=== PATIENT | female | born 1985 | race Hispanic/Latino ===

== ENCOUNTER 2024-03-14 17:05 | Inpatient (IN) | payer SELFPAY ==
[~2024-03-14] VITALS: Ht 152.4 cm; Wt 68.5 kg
--- NOTE | 2024-03-14 17:54 | EKG ---
[facility] Test Date: 2024-03-14 Test Time: 17:51:55 Pat Name: PEREZ FLORES Department: [facility] Room: 305 Gender: F Credit Compliance Officer: [id number] : 1985 Requested By: TRISHA ROSS Order Number: [id number] Reading MD: Princess Little Measurements Intervals [place] Rate: 111 P: 36 GA: 150 QRS: -11 QRSD: 92 T: 31 QT: 318 QTc: 431 Interpretive Statements Sinus tachycardia No previous ECG available for comparison Electronically Signed On 03-15-2024 17:25:28 WATCH TRAIN ASSEMBLER by Princess Little Please click the below link to view image of tracing.
--- NOTE | 2024-03-14 18:14 | HMCIMG ---
CHEST 1VW HISTORY: Shortness of breath COMPARISON: None FINDINGS: A frontal projection of the chest was obtained. No acute pulmonary infiltrates is seen. The heart is normal in size. Prominent interstitial markings are seen. Aortic calcifications are seen. Mild degenerative changes are seen. IMPRESSION: 1. No acute pulmonary infiltrate is seen.
[2024-03-14 18:43] LABS: COVID19 (SARS ANTIGEN RAPID) PRESUMPTIVE NEGATIVE (NEGATIVE); INFLUENZA TYPE A Negative For Type A (NEGATIVE); INFLUENZA TYPE B Negative For Type B (NEGATIVE)
[2024-03-14 18:52] LABS: BASOPHILS # (AUTO) 0.01 K/uL (0.00-0.20); BASOPHILS % (AUTO) 0.3 % (0.0-5.0); HEMATOCRIT 42.2 % (36-48); IMMATURE GRANULOCYTE ABSOLUTE 0.02 K/uL (0-1); LYMPHOCYTES # (AUTO) 0.7 K/uL (1.0-4.8); LYMPHOCYTES % (AUTO) 21.2 % (21.0-51.0); MEAN CORPUSCULAR HEMOGLOBIN 29.3 pg (27.0-33.0); MEAN CORPUSCULAR HGB CONC 33.4 g/dL (32.0-36.0); MEAN CORPUSCULAR VOLUME 87.7 fL (79-99); MONOCYTES # (AUTO) 0.2 K/uL (0.1-1.0); MONOCYTES % (AUTO) 6.1 % (3.0-13.0); NEUTROPHILS # (AUTO) 2.5 K/uL (1.8-7.7); NEUTROPHILS % (AUTO) 71.8 % (40.0-77.0); PLATELET COUNT (AUTO) 243 K/uL (130-400); RED BLOOD CELL COUNT(AUTO) 4.81 MIL/uL (4.00-5.50); RED CELL DISTRIBUTION WIDTH 12.3 % (11.0-15.5); WHITE BLOOD COUNT (AUTO) 3.5 K/uL (4.8-10.8)
[2024-03-14] MEDS: acetaMINOPHEN 500 MG TABLET PO ONE (19:03)
--- NOTE | 2024-03-14 19:06 | ERN ---
ED Note History of Present Illness Stated Complaint: FEVER 5 DAYS, LBP, HEADACHE Chief Complaint: Fever Time Seen by MD: 17:08 Time Seen by Midlevel: 17:08 Dictation: The patient is a 38-year-old female with a history of anemia who presents to the emergency department with multiple complaints of fever, nausea, chills, headache, left flank pain,onset Wednesday. Patient denies any abdominal pain, vomiting, sore throat, cough, ear pain. Allergies: Coded Allergies: No Known Drug Allergies (Verified Allergy, Unknown, 08/23/13) Home Meds No Active Prescriptions or Reported Meds Past Medical History Past Medical History: Anemia Surgical History: None RN Note Reviewed/Agreed w/PFSH: Yes Review of System Dictation Constitutional: Negative for weight loss positive for fever, chills Eyes: Negative for injury, pain,redness, and discharge ENT: Negative for injury,pain or swelling Cardiovascular: Negative for palpitations, and edema positive for chest pain Respiratory: Negative for cough, and wheezing, positive for shortness of breath Abdomen/GI: Negative for abdominal pain, , vomiting, diarrhea, and constipation positive for nausea Back: Negative for injury and pain : Negative for injury, bleeding and discharge MS/Extremity: Negative for injury and deformity Skin: Negative for rash, and discoloration Neuro: Negative for headache, weakness, numbness, tingling, and seizure Psych: Negative for suicide ideation, homicidal ideation, and hallucinations Initial Vital Sign VS Vital Signs Date Time Temp Pulse Resp B/P (MAP) Pulse Ox O2 Delivery O2 Flow Rate FiO2 03/14/24 17:38 102.6 110 16 137/99 99 Room Air* 0 21 Physical Exam Dictation Vital Signs reviewed General Appearance: Alert, oriented x 3, no acute distress, well developed, nourished. Head and Face: non-traumatic. Eyes: PERRL, pink conjunctivas, eyelid no trauma, anterior chamber with arcus senilis. Ears: Pinnas intact and no signs of trauma or erythema ear canals clear and no discharge TM no erythema Nose: No discharge, no bleeding. Oropharynx: Mouth normal, tongue pink. pharynx clear,no erythema, tonsils no exudates, no abscesses noted, mucous membrane moist Neck: Supple, non-tender, no thyromegaly, no masses, no JVD, no bruits Breast:Deferred Chest:No tenderness, no crepitus, no paradoxical movement, no retractions Lungs:Clear, well-ventilated, symmetric, no rales, no wheezing, no rhonchi, no stridor, good breath sounds bilaterally Heart: Regular rate, regular rhythm, no murmur, no gallops Vascular: no peripheral edema, Abdomen: Soft, positive bowel sounds, nondistended, no guarding, nontender, no rebound, no masses no hepatomegaly, no splenomegaly, no Victor's sign, no hernias. Rectal: Deferred Genital: Deferred Neurological: Normal speech, motor function intact, sensory function intact Musculoskeletal: Neck nontender, full range of motion, back nontender, full range of motion, Extremities: nontender, full range of motion Skin: Color pink, dry, no turgor, no rash, no lacerations, no abrasions, no contusions. Lymphatic: Deferred Results (Laboratory/Radiology) Laboratory/Radiology Laboratory Tests Test 03/14/24 17:55 03/14/24 18:17 03/14/24 19:38 Influenza Type A Antigen Negative For Type A Influenza Type B Antigen Negative For Type B SARS-CoV-2 Antigen (Rapid) PRESUMPTIVE NEGATIVE White Blood Count 3.5 K/uL (4.8-10.8) L Red Blood Count 4.81 MIL/uL (4.00-5.50) Hemoglobin 14.1 g/dL (12.0-16.0) Hematocrit 42.2 % (36-48) Mean Corpuscular Volume 87.7 fL (79-99) Mean Corpuscular Hemoglobin 29.3 pg (27.0-33.0) Mean Corpuscular Hemoglobin Concent 33.4 g/dL (32.0-36.0) Red Cell Distribution Width 12.3 % (11.0-15.5) Platelet Count 243 K/uL (130-400) Mean Platelet Volume 9.9 fL (7.5-10.5) Immature Granulocyte % (Auto) 0.6 % (0-1) Neutrophils (%) (Auto) 71.8 % (40.0-77.0) Lymphocytes (%) (Auto) 21.2 % (21.0-51.0) Monocytes (%) (Auto) 6.1 % (3.0-13.0) Eosinophils (%) (Auto) 0.0 % (0.0-8.0) Basophils (%) (Auto) 0.3 % (0.0-5.0) Neutrophils # (Auto) 2.5 K/uL (1.8-7.7) Lymphocytes # (Auto) 0.7 K/uL (1.0-4.8) L Monocytes # (Auto) 0.2 K/uL (0.1-1.0) Eosinophils # (Auto) 0.00 K/uL (0.00-0.70) Basophils # (Auto) 0.01 K/uL (0.00-0.20) Absolute Immature Granulocyte (auto 0.02 K/uL (0-1) Nucleated Red Blood Cells 0.0 % (0.0-0.19) Sodium Level 128 mmol/L (136-145) L Potassium Level 3.0 mmol/L (3.5-5.1) *L Chloride Level 93 mmol/L (101-111) L Carbon Dioxide Level 30 mmol/L (21-32) Blood Urea Nitrogen 4 mg/dL (7-18) L Creatinine 0.8 mg/dL (0.5-1.0) Glomerular Filtration Rate Calc 97 mL/min (>90) Random Glucose 102 mg/dL (70-105) Lactic Acid Level 1.4 mmol/L (0.8-2.5) Total Calcium 9.1 mg/dL (8.5-10.1) Troponin I High Sensitivity < 4 ng/L (4-50) L Urine Color YELLOW (YELLOW) Urine Appearance CLOUDY (CLEAR) H Urine pH 7.0 (5.0-8.0) Urine Specific [place] 1.027 (1.001-1.031) Urine Protein 30 mg/dL (NEGATIVE) H Urine Glucose (UA) NEGATIVE mg/dL (NEGATIVE) Urine Ketones 10 mg/dL (NEGATIVE) H Urine Occult Blood NEGATIVE (NEGATIVE) Urine Nitrate NEGATIVE (NEGATIVE) Urine Bilirubin NEGATIVE mg/dL (NEGATIVE) Urine Urobilinogen >=8.0 mg/dL (0.2-1.0) H Urine Leukocyte Esterase 75 [place]/uL (NEGATIVE) H Urine RBC 6-10 /HPF (0-1) H Urine WBC 6-10 /HPF (0-1) H Urine Squamous Epithelial Cells MANY /HPF (0-2) Urine Bacteria MOD /HPF (None Seen) REASON: sob ORDERING PHYSICIAN: TRISHA ROSS RIPSHEAR OPERATOR PROCEDURE: CXR1VW - CHEST 1VW CHEST 1VW HISTORY: Shortness of breath COMPARISON: None FINDINGS: A frontal projection of the chest was obtained. No acute pulmonary infiltrates is seen. The heart is normal in size. Prominent interstitial markings are seen. Aortic calcifications are seen. Mild degenerative changes are seen. IMPRESSION: 1. No acute pulmonary infiltrate is seen. REASON: left swelling ORDERING PHYSICIAN: TIRSHA ROSS RIPSHEAR OPERATOR PROCEDURE: SOFT NECK - US SOFT TISSUE NECK US SOFT TISSUE NECK REASON: left swelling. COMPARISON: None TECHNIQUE: Left neck ultrasound study was performed. FINDINGS: Over the palpable area, there are multiple left cervical lymph nodes with the largest measuring 4.2 x 1.6 cm. IMPRESSION: 1. Left cervical adenopathy with the largest lymph node measuring 4.2 x 1.6 cm. Follow-up examination is recommended. Labs Reviewed?: Yes EKG: (+) rhythm (Sinus tachycardia), (+) MS (150) EKG Comment: EKG 03/14/2024 1751 ventricular rate of 111, regular rate and rhythm, sinus tachycardia, no STEMI ED Course ED Course Orders Procedure Category Date Status Time Cbc With Differential LAB 03/14/24 Complete 17:38 Troponin I High LAB 03/14/24 Complete Sensitivity 17:38 Urinalysis Profile LAB 03/14/24 Complete 17:38 0.9%Nacl 1000ml (Ns PHA 03/14/24 Complete 1000ml) 18:00 Ondansetron 4mg Inj PHA 03/14/24 Complete (Zofran 4mg Inj) 18:00 Chest 1vw RAD 03/14/24 Resulted 17:38 Basic Metabolic Panel LAB 03/14/24 Complete 17:38 Acetaminophen 500mg PHA 03/14/24 Complete Tab (Tylenol 500mg T 18:00 Covid19 (Sars Antigen LAB 03/14/24 Complete Rapid) 17:38 Influenza Type A & B, LAB 03/14/24 Complete Rapid 17:38 12 Lead Ekg Tracing- EKG 03/14/24 Complete Technical 17:38 Blood Cult TULIO 03/14/24 In Process 17:40 Lactic Acid LAB 03/14/24 Complete 17:40 Ceftriaxone 2gm Vial PHA 03/14/24 Complete (Rocephin 2gm Inj) 18:00 Us Soft Tissue Neck US 03/14/24 Resulted 19:56 Culture Urine TULIO 03/14/24 In Process 19:56 Potassium Bicarb/Cit PHA 03/14/24 Complete Ac 25meq (K-Lyte Ta 20:30 Admit Orders ADM 03/14/24 Transmitted 21:06 Admit Orders ADM 03/14/24 Transmitted 21:33 Edm Admit Bridge Order ADM 03/14/24 Transmitted 21:33 Ceftriaxone 2gm Vial PHA 03/15/24 Complete (Rocephin 2gm Inj) 20:00 0.9%Nacl 1000ml (Ns PHA 03/14/24 In Process 1000ml) 22:30 Vital Signs Every 4 CPOE 03/14/24 Transmitted Hours 23:27 I&O Q Shift CPOE 03/14/24 Transmitted 23:27 Activity: Ad Enedelia CPOE 03/14/24 Transmitted 23:27 Consistent Carb DIET 03/15/24 Transmitted Breakfast O2 Order RT 03/14/24 Transmitted 23:27 Cbc With Differential LAB 03/15/24 In Process 04:00 Basic Metabolic Panel LAB 03/15/24 In Process 04:00 Magnesium LAB 03/15/24 In Process 04:00 Phosphorus LAB 03/15/24 In Process 04:00 Thyroid Stimulating LAB 03/15/24 In Process Hormone 04:00 Initiate VINCENZO 03/14/24 In Process Hyperglycemia Protoco 23:27 Enoxaparin Sodium 30 PHA 03/15/24 In Process Mg/0.3 Ml (Lovenox) 09:00 Acetaminophen 325 Tab PHA 03/15/24 In Process (Tylenol 325mg Tab 03:00 Acetaminophen 650mg PHA 03/15/24 In Process Supp (Tylenol 650mg 03:00 Lactulose 20 Gm/30 Ml PHA 03/15/24 In Process Udcup (Constulose 03:00 Docusate Sodium 100 PHA 03/15/24 In Process Mg Cap (Colace 100mg 03:00 Temazepam 15 Mg Cap PHA 03/15/24 In Process (Restoril 15 Mg Cap) 03:00 Ondansetron 4mg Inj PHA 03/15/24 In Process (Zofran 4mg Inj) 03:00 Hydralazine 20mg Inj PHA 03/15/24 In Process (Apresoline 20mg In 03:00 Ceftriaxone 2gm Vial PHA 03/15/24 In Process (Rocephin 2gm Inj) 06:00 Initiate Hypoglycemia VINCENZO 03/15/24 In Process Protocol 02:57 Dextrose 50%-Water PHA 03/15/24 In Process (D50w) 03:00 Glucagon 1mg Kit PHA 03/15/24 In Process (Glucagon 1mg Kit) 03:00 Magnesium 2gm Premix PHA 03/15/24 In Process 50ml (Magnesium 2gm 03:00 Initiate Po VINCENZO 03/15/24 In Process Hypokalemia Protoc 02:57 Potassium Chloride PHA 03/15/24 In Process 20meq/100ml ([place] 03:00 Potassium Chl 10% PHA 03/15/24 In Process Elixir 20meq (Kcl 10% 03:00 Potassium Chloride PHA 03/15/24 In Process 20meq Er (K-Dur/Klor- 03:00 Notify Physician If CPOE 03/15/24 Transmitted There Is 02:57 Notify Md On The Next CPOE 03/15/24 Transmitted 02:57 Notify Md On The CPOE 03/15/24 Transmitted Next(Cont.) 02:57 Hemoglobin A1c LAB 03/15/24 Logged 04:00 Pantoprazole 40mg Tab PHA 03/15/24 In Process (Protonix 40mg Tab 09:00 Vital Signs Date Time Temp Pulse Resp B/P (MAP) Pulse Ox O2 Delivery O2 Flow Rate FiO2 03/15/24 04:30 102.7 106 18 123/67 100 Room Air 03/15/24 03:12 102.7 03/15/24 01:31 99.9 80 18 113/68 99 Room Air 03/14/24 22:35 Room Air* 0 21 03/14/24 22:27 98.2 68 18 112/68 98 Room Air* 0 21 03/14/24 20:29 100.2 102 18 118/74 97 Room Air* 0 21 03/14/24 19:03 102.0 03/14/24 17:38 117 16 137/99 98 Room Air 0 03/14/24 17:38 102.6 110 16 137/99 99 Room Air* 0 21 Medical Decision Making MDM The patient is a 38-year-old female with a history of anemia who presents to the emergency department with multiple complaints of fever, nausea, chills, headache, left flank pain, onset Wednesday. Patient denies any abdominal pain, vomiting, sore throat, cough, ear pain. CBC showed no leukocytosis, no anemia, chemistry showed hypokalemia, hyponatremia, normal renal function, lactic acid of 1.4. Urinalysis with leukocyte esterase, cloudy. Serology negative. Ultrasound revealed lymphadenopathy. Patient will be admitted for further management. Patient received IV antibiotics for UTI. Differential diagnosis: Sepsis, pyelonephritis, flu, pneumonia, electrolyte imbalance Comorbidities: Anemia Tests considered and not ordered secondary to shared decision making include: none Previous outside records reviewed: none Risk of complication and/or morbidity or mortality of patient management: The patient meets criteria for admission. Need for emergency major/minor surgery: No There are no social concerns with this patient. I independently interpreted the tests I ordered (labs, urinalysis, etc.). I discussed the case with the hospitalist for admission. Ying who accepts admission. I discussed the case with the following specialists: none. Historian: pateint. I independently interpreted imaging studies and EKGs that I ordered (US, CT, XR, EKG, etc.). External chart review: none. Medical management and examination interpretation discussions were had by me with other qualified healthcare professionals as indicated for the patient's care. DX & DISP Disposition: Inpatient Decision to Admit Date: Mar 14, 2024 Decision to Admit Time: 21:06 Departure Impression: Primary Impression: Pyelonephritis Additional Impressions: Sepsis, Hypokalemia, Hyponatremia, Dehydration, Fever, Lymphadenopathy Condition: Stable Scripts No Active Prescriptions or Reported Meds Referrals: SIVA WILCOX Jr., MD (PCP) I have reviewed the case, and I agree with, Diagnosis and Plan ATTESTATION BY PHYSICIAN I PERFORMED THE SUBSTANTIVE PORTION OF THE VISIT. I HAVE REVIEWED AND PERSONALLY MADE AND APPROVED THE MANAGEMENT PLAN THAT IS DOCUMENTED IN THE NOTE BY MYSELF FOR THE A PP. I ACKNOWLEDGED FOR RESPONSIBILITY FOR THE PATIENT'S MANAGEMENT PLAN. TRISHA ROSS Mar 14, 2024 19:06 MURTAZA CORADO MD Mar 15, 2024 05:08
[2024-03-14 19:14] LABS: CREATININE 0.8 mg/dL (0.5-1.0)
[2024-03-14 19:53] LABS: APPEARANCE,URINE CLOUDY (CLEAR); BILIRUBIN,URINE NEGATIVE (NEGATIVE); COLOR,URINE YELLOW (YELLOW); GLUCOSE, URINE (UA) NEGATIVE (NEGATIVE); KETONES,URINE 10 mg/dL (NEGATIVE); LEUKOCYTE ESTERASE ,URINE 75 Leu/uL (NEGATIVE); NITRATE,URINE NEGATIVE (NEGATIVE); OCCULT BLOOD,URINE NEGATIVE (NEGATIVE); PROTEIN,URINE 30 mg/dL (NEGATIVE); UROBILINOGEN,URINE >=8.0 mg/dL (0.2-1.0)
[2024-03-14] MEDS: 0.9%NACL 1000ML 1,000 ML IV ONE (19:53)
[2024-03-14] MEDS: ondanSETRON 4MG INJ IVP ONE (19:53)
[2024-03-14] MEDS: CEFTRIAXONE 2GM VIAL IVPB ONE (19:53)
[2024-03-14 19:56] LABS: ADD UA MICROSCOPIC YES
[2024-03-14 19:58] LABS: BACTERIA,URINE MOD /HPF (None Seen); MUCUS,URINE FEW LPF (None Seen); SQUAMOUS EPITHELIAL CELL,UR MANY /HPF (0-2)
--- NOTE | 2024-03-14 20:28 | HMCIMG ---
US SOFT TISSUE NECK REASON: left swelling. COMPARISON: None TECHNIQUE: Left neck ultrasound study was performed. FINDINGS: Over the palpable area, there are multiple left cervical lymph nodes with the largest measuring 4.2 x 1.6 cm. IMPRESSION: 1. Left cervical adenopathy with the largest lymph node measuring 4.2 x 1.6 cm. Follow-up examination is recommended.
[2024-03-14] MEDS: PoTASSium BIcarbonate/CIT AC 25 MEQ TABLET.EFF PO ONE (21:30)
--- NOTE | 2024-03-14 22:25 | NUR ---
REPORT GIVEN TO BEN ALEXANDER. PT GOING TO ROOM 305. HOSPITALIST AWARE, WILL SEE PATIENT ON THE FLOOR.
--- NOTE | 2024-03-14 23:09 | HP ---
[facility] HISTORY [facility] PHYSICAL Date of Service: Mar 14, 2024 Time of Service: 23:09 SIVA WILCOX Jr., MD (PCP) Attending/supervising physicians: Dr. Judy Prado and Dr. Peterson HISTORY OF PRESENT ILLNESS: Ms. Perez is a 38-year-old female with a history of anemia who presented [facility] emergency department for evaluation of fever, nausea, chills, headache, left flank pain onset Wednesday. Patient denies any abdominal pain, vomiting, sore throat, cough, ear pain. Flu and COVID swabs were negative. Chest x-ray: 1. No acute pulmonary infiltrate is seen. Ultrasound soft tissue neck: 1. Left cervical adenopathy with the largest lymph node measuring 4.2 x 1.6 cm. EKG: Sinus tachycardia. UA positive for leuk EST, ketones, protein, urobilinogen. ED provider request patient be admitted under the [facility] team with the diagnosis of pyelonephritis, sepsis, hypokalemia, hyponatremia, dehydration, fever, lymphadenopathy. Went to assess the patient at bedside. Patient appeared comfortable, in no distress. Patient reports she had no longer has a fever but has a headache. Family member was at bedside. I informed them of labs, diagnostics, and plan of care. They verbalized understanding and are in agreement with plan. REVIEW OF SYSTEMS 12-point ROS reviewed with patient. All pertinent positives mentioned above. Otherwise negative, non-pertinent, or noncontributory. PAST MEDICAL HISTORY: Anemia PAST SURGICAL HISTORY: None PAST SOCIAL HISTORY: Denies alcohol, tobacco, illicit drug use Lives with family FAMILY HISTORY: Noncontributory Coded Allergies: No Known Drug Allergies (Verified Allergy, Unknown, 08/23/13) PHYSICAL EXAM GENERAL APPEARANCE: The patient is awake, alert, and oriented, in no acute cardiopulmonary distress. NEUROLOGICAL: Cranial nerves II-XII grossly intact. Motor is 5/5 in bilateral upper and lower extremities proximal to distal. No sensory deficits. HEENT: Face is symmetric. Pupils are equal and reactive. Extraocular movements are intact. NECK: Supple. No JVD. No thyromegaly. No submental, submandibular, pre- /postauricular, occipital or supraclavicular lymphadenopathy. CHEST: Normal chest expansion. No Telemetry. LUNGS: Absence of any rales, rhonchi or any wheezing. CARDIOVASCULAR: Regular. S1 and S2 normal. No appreciable rubs, murmurs or gallops. ABDOMEN: Soft, nontender, and nondistended. There is no rebound, voluntary guarding, or rigidity. : Deferred. No Maurice. EXTREMITIES: Non-edematous and not cyanotic. No clubbing. Good capillary refill. SKIN: No skin breakdown. Vital Sign (Last 24 Hours) 03/14/24 03/14/24 22:27 22:35 Temp 98.2 Pulse 68 Resp 18 B/P (MAP) 112/68 Pulse Ox 98 O2 Delivery Room Air* O2 Flow Rate 0 FiO2 21 LABS: Laboratory: Test 03/14/24 19:38 03/14/24 18:17 03/14/24 17:55 Range/Units Urine Color YELLOW YELLOW Urine Appearance CLOUDY H CLEAR Urine pH 7.0 5.0-8.0 Urine Specific [place] 1.027 1.001-1.031 Urine Protein 30 H NEGATIVE mg/dL Urine Glucose (UA) NEGATIVE NEGATIVE mg/dL Urine Ketones 10 H NEGATIVE mg/dL Urine Occult Blood NEGATIVE NEGATIVE Urine Nitrate NEGATIVE NEGATIVE Urine Bilirubin NEGATIVE NEGATIVE mg/dL Urine Urobilinogen >=8.0 H 0.2-1.0 mg/dL Urine Leukocyte Esterase 75 H NEGATIVE Galen/uL Urine RBC 6-10 H 0-1 /HPF Urine WBC 6-10 H 0-1 /HPF Urine Squamous Epithelial Cells MANY 0-2 /HPF Urine Bacteria MOD None Seen /HPF White Blood Count 3.5 L 4.8-10.8 K/uL Red Blood Count 4.81 4.00-5.50 MIL/uL Hemoglobin 14.1 12.0-16.0 g/dL Hematocrit 42.2 36-48 % Mean Corpuscular Volume 87.7 79-99 fL Mean Corpuscular Hemoglobin 29.3 27.0-33.0 pg Mean Corpuscular Hemoglobin Concent 33.4 32.0-36.0 g/dL Red Cell Distribution Width 12.3 11.0-15.5 % Platelet Count 243 130-400 K/uL Mean Platelet Volume 9.9 7.5-10.5 fL Immature Granulocyte % (Auto) 0.6 0-1 % Neutrophils (%) (Auto) 71.8 40.0-77.0 % Lymphocytes (%) (Auto) 21.2 21.0-51.0 % Monocytes (%) (Auto) 6.1 3.0-13.0 % Eosinophils (%) (Auto) 0.0 0.0-8.0 % Basophils (%) (Auto) 0.3 0.0-5.0 % Neutrophils # (Auto) 2.5 1.8-7.7 K/uL Lymphocytes # (Auto) 0.7 L 1.0-4.8 K/uL Monocytes # (Auto) 0.2 0.1-1.0 K/uL Eosinophils # (Auto) 0.00 0.00-0.70 K/uL Basophils # (Auto) 0.01 0.00-0.20 K/uL Absolute Immature Granulocyte (auto 0.02 0-1 K/uL Nucleated Red Blood Cells 0.0 0.0-0.19 % Sodium Level 128 L 136-145 mmol/L Potassium Level 3.0 *L 3.5-5.1 mmol/L Chloride Level 93 L 101-111 mmol/L Carbon Dioxide Level 30 21-32 mmol/L Blood Urea Nitrogen 4 L 7-18 mg/dL Creatinine 0.8 0.5-1.0 mg/dL Glomerular Filtration Rate Calc 97 >90 mL/min Random Glucose 102 70-105 mg/dL Lactic Acid Level 1.4 0.8-2.5 mmol/L Total Calcium 9.1 8.5-10.1 mg/dL Troponin I High Sensitivity < 4 L 4-50 ng/L Influenza Type A Antigen Negative For Type A NEGATIVE Influenza Type B Antigen Negative For Type B NEGATIVE SARS-CoV-2 Antigen (Rapid) PRESUMPTIVE NEGATIVE NEGATIVE Current Medications Medications (Trade) Dose Ordered Sig/Shira Route PRN Reason Start Time Stop Time Status Last Admin Dose Admin Ceftriaxone Sodium (Rocephin 2gm Inj) 2 gm Q24H IVPB 03/15/24 20:00 03/25/24 19:59 Sodium Chloride 1,000 ml @ 125 mls/hr Q8H IV 03/14/24 22:30 04/13/24 22:29 DIAGNOSTICS / RADIOLOGY: [ ] ASSESSMENT: Pyelonephritis, POA Acute complicated cystitis, POA Left cervical adenopathy with the largest lymph node measuring 4.2 x 1.6 cm, POA Electrolyte derangement (hyponatremia, hypokalemia, hypochloremia Dehydration Chronic problem list: anemia PLAN: Admit patient to medical floor. Continue antibiotic therapy: Rocephin2 g IV daily. IV hydration: NS at 125 mL an hour. P.r.n. medications for: Pain management, fever, nausea, vomiting, constipation, hypertension. Monitor renal and liver function. Monitor electrolytes and treat accordingly. DVT and GI prophylaxis. A.m. labs: CBC, BMP, Mag, phos, A1c, TSH Further orders per hospitalization course. ADVANCED CARE PLANNING 1. Which of the following were discussed? Hospice Care - No Therapeutic options - No Advance Directives - Yes Other discussions - 2. Discussed with who? Patient 3. Voluntary nature of this service was explained to the patient? Yes 4. Amount of time spent - ___ over 35 minute ____ 5. Reviewed by Physician? (if this service was performed by NPP) Yes Patient seen and examined by me. Agree with note by ROOFER METAL SEE ADDITIONAL ORDERS PER CHART DISCUSSED WITH NURSING STAFF KAL BURNHAMP Mar 14, 2024 23:09
[2024-03-14] MEDS: 0.9%NACL 1000ML 1,000 ML IV SCH (23:25)
[2024-03-15] VITALS (9 sets, daily range): BP systolic 105–135; BP diastolic 65–88; PULSE 80–109; RESP 18; TEMP 99.2–103; O2SAT 98
[2024-03-15] MEDS ORDERED: acetaMINOPHEN 650 MG SUPPOSITORY RC PRN (03:00)
[2024-03-15] MEDS ORDERED: TEMAZepam 15 MG CAPSULE PO PRN (03:00)
[2024-03-15] MEDS ORDERED: PoTASSium chloRIDE 20MEQ/100ML 100 ML IV PRN (03:00)
[2024-03-15] MEDS ORDERED: hydrALAZine 20MG/ML VIAL IV PRN (03:00)
[2024-03-15] MEDS ORDERED: GLUCAGON 1MG KIT 1 MG ML IM PRN (03:00)
[2024-03-15] MEDS ORDERED: DEXTROSE 50%-WATER 50 ML DISP.SYRIN IV PRN (03:00)
[2024-03-15] MEDS ORDERED: PoTASSium chl 10% ELIXIR 20MEQ 20 MEQ/15 ML UDCUP PO PRN (03:00)
[2024-03-15] MEDS: acetaMINOPHEN 325 MG TAB PO PRN (03:12)
[2024-03-15] MEDS: CEFTRIAXONE 2GM VIAL IVPB SCH (05:22)
[2024-03-15 05:28] LABS: BASOPHILS # (AUTO) 0.01 K/uL (0.00-0.20); BASOPHILS % (AUTO) 0.3 % (0.0-5.0); HEMATOCRIT 37.1 % (36-48); IMMATURE GRANULOCYTE ABSOLUTE 0.01 K/uL (0-1); LYMPHOCYTES # (AUTO) 0.7 K/uL (1.0-4.8); LYMPHOCYTES % (AUTO) 17.6 % (21.0-51.0); MEAN CORPUSCULAR HEMOGLOBIN 29.7 pg (27.0-33.0); MEAN CORPUSCULAR HGB CONC 33.2 g/dL (32.0-36.0); MEAN CORPUSCULAR VOLUME 89.6 fL (79-99); MONOCYTES # (AUTO) 0.3 K/uL (0.1-1.0); MONOCYTES % (AUTO) 6.6 % (3.0-13.0); NEUTROPHILS % (AUTO) 75.2 % (40.0-77.0); PLATELET COUNT (AUTO) 185 K/uL (130-400); RED BLOOD CELL COUNT(AUTO) 4.14 MIL/uL (4.00-5.50); RED CELL DISTRIBUTION WIDTH 12.4 % (11.0-15.5); WHITE BLOOD COUNT (AUTO) 3.9 K/uL (4.8-10.8)
[2024-03-15 05:55] LABS: CREATININE 0.7 mg/dL (0.5-1.0); HEMOGLOBIN A1C 5.8 % (4.0-6.0); MAGNESIUM 1.6 mg/dL (1.80-2.40); PHOSPHORUS 2.2 mg/dL (2.5-4.9); POTASSIUM 3.6 mmol/L (3.5-5.1); THYROID STIMULATING HORMONE 0.59 uIU/mL (0.36-3.74)
[2024-03-15] MEDS: PANTOPrazole 40 MG TAB DR PO SCH (08:28)
[2024-03-15] MEDS: ENOXAPARIN SODIUM 30 MG/0.3 ML SQ SCH (08:30)
[2024-03-15] MEDS: PoTASSium chloRIDE 20MEQ ER 20 MEQ ERTAB PO PRN (09:05)
[2024-03-15] MEDS: MAGNESIUM 2GM PREMIX 50ML 50 ML IV PRN (09:05)
[2024-03-15] MEDS: ketOROlac 15MG/ML VIAL (15MG/ML) IV PRN (11:58)
--- NOTE | 2024-03-15 13:11 | HMCIMG ---
CT CHEST W/O CONTRAST REASON: COUGH COMPARISON: None. TECHNIQUE: Multiple sequential axial images of the chest were obtained from the thoracic inlet through the upper pole of the kidneys without intravenous contrast administration. FINDINGS: Heart size is within upper limits of normal. No mediastinal or axillary lymphadenopathy identified. There is no pleural or pericardial effusion. Lungs are clear. There is no consolidation or pneumothorax. Trachea and main bronchi are unremarkable. No chest wall abnormality identified. IMPRESSION: Negative unenhanced CT chest. CT was performed with one or more following dose reduction techniques: automated exposure control, adjustment of the mA and kv according to patient's size, or use of a iterative reconstruction technique.
--- NOTE | 2024-03-15 13:32 | PN ---
[facility] PROGRESS NOTE Date of Service: Mar 15, 2024 Time of Service: 13:[address] Mijares SUBJECTIVE: [ Ms. Perez is a 38-year-old female with a history of anemia who presented [facility] [place] department for evaluation of fever, nausea, chills, headache, left flank pain onset Wednesday. Patient denies any abdominal pain, vomiting, sore throat, cough, ear pain. Flu and COVID swabs were negative. Chest x-ray: 1. No acute pulmonary infiltrate is seen. Ultrasound soft tissue neck: 1. Left cervical adenopathy with the largest lymph node measuring 4.2 x 1.6 cm. EKG: Sinus tachycardia. UA positive for leuk EST, ketones, protein, urobilinogen. ED provider request patient be admitted under the [facility] team with the diagnosis of pyelonephritis, sepsis, hypokalemia, hyponatremia, dehydration, fever, lymphadenopathy. 03/15 patient was seen by nurse practitioner and physician during rounding in room 305. Patient's COVID influenza a and influenza B continues to be negative. Soft tissue ultrasound showed left cervical adenopathy with the largest lymph node measuring 4.2 x 1.6 cm. At this moment we will order CT chest without the contrast and it is negative. We also consulted ID since patient has been having leukocytosis since Wednesday. Patient's potassium and magnesium will be replaced with 40 mEq of potassium and 2 g of magnesium. Patient denies any HIV, aids , immunosuppressive disease or any cancer history. Oncologist/bike mechanic was also consulted by ID. In the meantime we will continue to monitor patient.am labs] REVIEW OF SYSTEMS 12-point ROS reviewed with patient. All pertinent positives mentioned above. Otherwise negative, non-pertinent, or noncontributory. PHYSICAL EXAM GENERAL APPEARANCE: The patient is awake, alert, and oriented, in no acute cardiopulmonary distress. NEUROLOGICAL: Cranial nerves II-XII grossly intact. Motor is 5/5 in bilateral upper and lower extremities proximal to distal. No sensory deficits. HEENT: Face is symmetric. Pupils are equal and reactive. Extraocular movements are intact. NECK: Supple. No JVD. No thyromegaly. No submental, submandibular, pre- /postauricular, occipital or supraclavicular lymphadenopathy. CHEST: Normal chest expansion. No Telemetry. LUNGS: Absence of any rales, rhonchi or any wheezing. CARDIOVASCULAR: Regular. S1 and S2 normal. No appreciable rubs, murmurs or gallops. ABDOMEN: Soft, nontender, and nondistended. There is no rebound, voluntary guarding, or rigidity. : Deferred. No Maurice. EXTREMITIES: Non-edematous and not cyanotic. No clubbing. Good capillary refill. SKIN: No skin breakdown. Vital Signs (last 8hr) Date Time Temp Pulse Resp B/P (MAP) Pulse Ox O2 Delivery O2 Flow Rate FiO2 03/15/24 11:58 99.3 96 18 135/88 99 Room Air 03/15/24 08:36 98 Room Air* 0 21 03/15/24 08:28 100.0 03/15/24 07:50 100.6 94 18 122/72 98 Room Air LABS: Laboratory: Test 03/15/24 05:06 03/14/24 19:38 03/14/24 18:17 03/14/24 17:55 Range/Units White Blood Count 3.9 L 4.8-10.8 K/uL Red Blood Count 4.14 4.00-5.50 MIL/uL Hemoglobin 12.3 12.0-16.0 g/dL Hematocrit 37.1 36-48 % Mean Corpuscular Volume 89.6 79-99 fL Mean Corpuscular Hemoglobin 29.7 27.0-33.0 pg Mean Corpuscular Hemoglobin Concent 33.2 32.0-36.0 g/dL Red Cell Distribution Width 12.4 11.0-15.5 % Platelet Count 185 130-400 K/uL Mean Platelet Volume 9.6 7.5-10.5 fL Immature Granulocyte % (Auto) 0.3 0-1 % Neutrophils (%) (Auto) 75.2 40.0-77.0 % Lymphocytes (%) (Auto) 17.6 L 21.0-51.0 % Monocytes (%) (Auto) 6.6 3.0-13.0 % Eosinophils (%) (Auto) 0.0 0.0-8.0 % Basophils (%) (Auto) 0.3 0.0-5.0 % Neutrophils # (Auto) 3.0 1.8-7.7 K/uL Lymphocytes # (Auto) 0.7 L 1.0-4.8 K/uL Monocytes # (Auto) 0.3 0.1-1.0 K/uL Eosinophils # (Auto) 0.00 0.00-0.70 K/uL Basophils # (Auto) 0.01 0.00-0.20 K/uL Absolute Immature Granulocyte (auto 0.01 0-1 K/uL Nucleated Red Blood Cells 0.0 0.0-0.19 % Sodium Level 138 136-145 mmol/L Potassium Level 3.6 3.5-5.1 mmol/L Chloride Level 102 101-111 mmol/L Carbon Dioxide Level 26 21-32 mmol/L Blood Urea Nitrogen 2 L 7-18 mg/dL Creatinine 0.7 0.5-1.0 mg/dL Glomerular Filtration Rate Calc 114 >90 mL/min Random Glucose 107 H 70-105 mg/dL Hemoglobin A1c 5.8 4.0-6.0 % Estimated Average Glucose (eAG) 120 70-126 mg/dL Total Calcium 8.1 L 8.5-10.1 mg/dL Phosphorus Level 2.2 L 2.5-4.9 mg/dL Magnesium Level 1.60 L 1.80-2.40 mg/dL Thyroid Stimulating Hormone (TSH) 0.59 0.36-3.74 uIU/mL Urine Color YELLOW YELLOW Urine Appearance CLOUDY H CLEAR Urine pH 7.0 5.0-8.0 Urine Specific [place] 1.027 1.001-1.031 Urine Protein 30 H NEGATIVE mg/dL Urine Glucose (UA) NEGATIVE NEGATIVE mg/dL Urine Ketones 10 H NEGATIVE mg/dL Urine Occult Blood NEGATIVE NEGATIVE Urine Nitrate NEGATIVE NEGATIVE Urine Bilirubin NEGATIVE NEGATIVE mg/dL Urine Urobilinogen >=8.0 H 0.2-1.0 mg/dL Urine Leukocyte Esterase 75 H NEGATIVE Galen/uL Urine RBC 6-10 H 0-1 /HPF Urine WBC 6-10 H 0-1 /HPF Urine Squamous Epithelial Cells MANY 0-2 /HPF Urine Bacteria MOD None Seen /HPF Lactic Acid Level 1.4 0.8-2.5 mmol/L Troponin I High Sensitivity < 4 L 4-50 ng/L Influenza Type A Antigen Negative For Type A NEGATIVE Influenza Type B Antigen Negative For Type B NEGATIVE SARS-CoV-2 Antigen (Rapid) PRESUMPTIVE NEGATIVE NEGATIVE Current Medications Medications (Trade) Dose Ordered Sig/Shira Route PRN Reason Start Time Stop Time Status Last Admin Dose Admin Acetaminophen (TYLenol 325MG TAB) 650 mg Q6H PRN PO FEVER/MILD PAIN LEVEL 1-3 03/15/24 03:00 04/14/24 02:59 03/15/24 08:28 650 MG Acetaminophen (TYLenol 650MG SUPPOSITORY) 650 mg Q6H PRN RC FEVER / MILD PAIN 1-3 IF NPO 03/15/24 03:00 04/14/24 02:59 Ceftriaxone Sodium (Rocephin 2gm Inj) 2 gm Q24H IVPB 03/15/24 06:00 03/25/24 05:59 03/15/24 05:22 2 GM Ceftriaxone Sodium (Rocephin 2gm Inj) 2 gm Q24H IVPB 03/15/24 20:00 03/15/24 02:58 DC Dextrose (D50w) 50 ml AD PRN IV HYPOGLYCEMIA PROTOCOL 03/15/24 03:00 04/14/24 02:59 Docusate Sodium (COLace 100MG CAP) 100 mg BID PRN PO c 03/15/24 03:00 04/14/24 02:59 Enoxaparin Sodium (Lovenox) 30 mg DAILY SQ 03/15/24 09:00 04/14/24 08:59 03/15/24 08:30 30 MG Glucagon (Glucagon 1mg Kit) 1 mg AD PRN IM HYPOGLYCEMIA PROTOCOL 03/15/24 03:00 04/14/24 02:59 Hydralazine HCl (APRESOLine 20MG INJ) 10 mg Q2H PRN IV SBP GREATER THAN 160 03/15/24 03:00 04/14/24 02:59 Ketorolac Tromethamine (toRADol) 15 mg Q6H PRN IV MODERATE PAIN (4-6) 03/15/24 10:30 03/20/24 10:29 03/15/24 11:58 15 MG Lactulose (Constulose 20gm/ 30ml Udcup) 20 gm Q6H PRN PO CONSTIPATION 03/15/24 03:00 04/14/24 02:59 Magnesium Sulfate 50 ml @ 0 mls/hr PROTOCOL PRN IV MAGNESIUM PROTOCOL 03/15/24 03:00 04/14/24 02:59 03/15/24 09:05 25 MLS/HR Ondansetron HCl (zoFRAN 4MG INJ) 4 mg Q6H PRN IVP NAUSEA/VOMITING 03/15/24 03:00 04/14/24 02:59 Pantoprazole Sodium (PROTonix 40MG TAB) 40 mg DAILY PO 03/15/24 09:00 04/14/24 08:59 03/15/24 08:28 40 MG Potassium Chloride 100 ml @ 100 mls/hr AD PRN IV POTASSIUM PROTOCOL 03/15/24 03:00 04/14/24 02:59 Potassium Chloride (K-Dur/Klor-Con 20meq) 20 meq AD PRN PO POTASSIUM PROTOCOL 03/15/24 03:00 04/14/24 02:59 03/15/24 09:05 20 MEQ Potassium Chloride (KCl 10% Elixir 20meq/15ml) 20 meq AD PRN PO POTASSIUM PROTOCOL 03/15/24 03:00 04/14/24 02:59 Sodium Chloride 1,000 ml @ 125 mls/hr Q8H IV 03/14/24 22:30 04/13/24 22:29 03/15/24 08:28 125 MLS/HR Temazepam (restORIL 15 MG CAP) 15 mg HS PRN PO INSOMNIA/SLEEP 03/15/24 03:00 04/14/24 02:59 DIAGNOSTICS / RADIOLOGY: [ ] ASSESSMENT: Pyelonephritis, POA Acute complicated cystitis, POA Left cervical adenopathy with the largest lymph node measuring 4.2 x 1.6 cm, POA Electrolyte derangement (hyponatremia, hypokalemia, hypochloremia Dehydration Chronic problem list: anemia PLAN: Admit patient to medical floor. Continue antibiotic therapy: Rocephin2 g IV daily. IV hydration: NS at 125 mL an hour. P.r.n. medications for: Pain management, fever, nausea, vomiting, constipation, hypertension. Monitor renal and liver function. Monitor electrolytes and treat accordingly. DVT and GI prophylaxis. A.m. labs Further orders per hospitalization course. CT chest without contrast negative Consult ID Consult oncologist ATTESTATION BY PHYSICIAN I have seen and examined the patient. I reviewed the documentation, medical decision making, and treatment plan as noted by the mid-level provider above. I agree with the findings and plan of care. Vu Mijares IV, MD, [employer] Mar 15, 2024 13:32
--- NOTE | 2024-03-15 14:12 | CONS ---
CONSULT NOTE: Ms. Perez is a 38-year-old female with a history of anemia who presented [facility] [place] department for evaluation of fever, nausea, chills, headache, left flank pain onset Wednesday. Patient denies any abdominal pain, vomiting, sore throat, cough, ear pain. Flu and COVID swabs were negative. Chest x-ray: 1. No acute pulmonary infiltrate is seen. Ultrasound soft tissue neck: 1. Left cervical adenopathy with the largest lymph node measuring 4.2 x 1.6 cm. EKG: Sinus tachycardia. UA positive for leuk EST, ketones, protein, urobilinogen. ED provider request patient be admitted under the [facility] team with the diag nosis of pyelonephritis, sepsis, hypokalemia, hyponatremia, dehydration, fever, lymphadenopathy. Went to assess the patient at bedside. Patient appeared comfortable, in no distress. Patient reports she had no longer has a fever but has a headache. Family member was at bedside. I informed them of labs, diagnostics, and plan of care. They verbalized understanding and are in agreement with plan. REVIEW OF SYSTEMS 12-point ROS reviewed with patient. All pertinent positives mentioned above. Otherwise negative, non-pertinent, or noncontributory. PAST MEDICAL HISTORY: Anemia PAST SURGICAL HISTORY: None PAST SOCIAL HISTORY: Denies alcohol, tobacco, illicit drug use Lives with family FAMILY HISTORY: Noncontributory Coded Allergies: No Known Drug Allergies (Verified Allergy, Unknown, 08/23/13) PHYSICAL EXAM GENERAL APPEARANCE: The patient is awake, alert, and oriented, in no acute cardiopulmonary distress. NEUROLOGICAL: Cranial nerves II-XII grossly intact. Motor is 5/5 in bilateral upper and lower extremities proximal to distal. No sensory deficits. HEENT: Face is symmetric. Pupils are equal and reactive. Extraocular movements are intact. NECK: Supple. No JVD. No thyromegaly. No submental, submandibular, pre- /postauricular, occipital or supraclavicular lymphadenopathy. CHEST: Normal chest expansion. No Telemetry. LUNGS: Absence of any rales, rhonchi or any wheezing. CARDIOVASCULAR: Regular. S1 and S2 normal. No appreciable rubs, murmurs or gallops. ABDOMEN: Soft, nontender, and nondistended. There is no rebound, voluntary guarding, or rigidity. : Deferred. No Maurice. EXTREMITIES: Non-edematous and not cyanotic. No clubbing. Good capillary refill. SKIN: No skin breakdown. Assessment 1. Neutropenia 2. Fever chills 3. Left cervical adenopathy 4. Pyelonephritis 5. History of anemia but hemoglobin level is 12.3 g/deciliter Plan 1. Peripheral blood smear showed red blood cells to be normocytic normochromic. There was no fragment cell or schistocyte. There is no teardrop cell. There is no rouleaux phenomena. There is no pelger-Huet cell. White blood cell with no blasts. Platelet was normal in morphology and count. 2. There was hypersegmented neutrophils. This patient to be started on folic acid 1 mg p.o. daily and vitamin B12 1000 mcg p.o. daily. 3. There is increased number of neutrophils, bands and toxic granulation and vacuolation. This is consistent with infection most likely atypical infection. I discussed the case with infectious diseases specialist. Maybe we need to add doxycycline or tetracycline to cover atypical infection. 4. We will follow-up with this patient closely. 5. No need for bone marrow biopsy or biopsy of the lymph node at this time. If the symptoms did not resolve with antibiotic treatment then maybe biopsy of the lymph node is indicated LAB RESULTS 03/15/24 05:06: White Blood Count 3.9L, Red Blood Count 4.14, Hemoglobin 12.3, Hematocrit 37.1, Mean Corpuscular Volume 89.6, Mean Corpuscular Hemoglobin 29.7, Mean Corpuscular Hemoglobin Concent 33.2, Red Cell Distribution Width 12.4, Platelet Count 185, Mean Platelet Volume 9.6, Immature Granulocyte % (Auto) 0.3, Neutrophils (%) (Auto) 75.2, Lymphocytes (%) (Auto) 17.6L, Monocytes (%) (Auto) 6.6, Eosinophils (%) (Auto) 0.0, Basophils (%) (Auto) 0.3, Neutrophils # (Auto) 3.0, Lymphocytes # (Auto) 0.7L, Monocytes # (Auto) 0.3, Eosinophils # (Auto) 0.00, Basophils # (Auto) 0.01, Absolute Immature Granulocyte (auto 0.01, Nucleated Red Blood Cells 0.0, Sodium Level 138, Potassium Level 3.6, Chloride Level 102, Carbon Dioxide Level 26, Blood Urea Nitrogen 2L, Creatinine 0.7, Glomerular Filtration Rate Calc 114, Random Glucose 107H, Hemoglobin A1c 5.8, Estimated Average Glucose (eAG) 120, Total Calcium 8.1L, Phosphorus Level 2.2L, Magnesium Level 1.60L, Thyroid Stimulating Hormone (TSH) 0.59 03/14/24 19:38: Urine Color YELLOW, Urine Appearance CLOUDYH, Urine pH 7.0, Urine Specific [place] 1.027, Urine Protein 30H, Urine Glucose (UA) NEGATIVE, Urine Ketones 10H, Urine Occult Blood NEGATIVE, Urine Nitrate NEGATIVE, Urine Bilirubin NEGATIVE, Urine Urobilinogen >=8.0H, Urine Leukocyte Esterase 75H, Urine RBC 6- 10H, Urine WBC 6-10H, Urine Squamous Epithelial Cells MANY, Urine Bacteria MOD 03/14/24 18:17: Lactic Acid Level 1.4, Troponin I High Sensitivity < 4L 03/14/24 17:55: Influenza Type A Antigen Negative For Type A, Influenza Type B Antigen Negative For Type B, SARS-CoV-2 Antigen (Rapid) PRESUMPTIVE NEGATIVE Laboratory Tests Test 03/14/24 17:55 03/14/24 18:17 03/14/24 19:38 03/15/24 05:06 Influenza Type A Antigen Negative For Type A Influenza Type B Antigen Negative For Type B SARS-CoV-2 Antigen (Rapid) PRESUMPTIVE NEGATIVE White Blood Count 3.5 K/uL (4.8-10.8) L 3.9 K/uL (4.8-10.8) L Red Blood Count 4.81 MIL/uL (4.00-5.50) 4.14 MIL/uL (4.00-5.50) Hemoglobin 14.1 g/dL (12.0-16.0) 12.3 g/dL (12.0-16.0) Hematocrit 42.2 % (36-48) 37.1 % (36-48) Mean Corpuscular Volume 87.7 fL (79-99) 89.6 fL (79-99) Mean Corpuscular Hemoglobin 29.3 pg (27.0-33.0) 29.7 pg (27.0-33.0) Mean Corpuscular Hemoglobin Concent 33.4 g/dL (32.0-36.0) 33.2 g/dL (32.0-36.0) Red Cell Distribution Width 12.3 % (11.0-15.5) 12.4 % (11.0-15.5) Platelet Count 243 K/uL (130-400) 185 K/uL (130-400) Mean Platelet Volume 9.9 fL (7.5-10.5) 9.6 fL (7.5-10.5) Immature Granulocyte % (Auto) 0.6 % (0-1) 0.3 % (0-1) Neutrophils (%) (Auto) 71.8 % (40.0-77.0) 75.2 % (40.0-77.0) Lymphocytes (%) (Auto) 21.2 % (21.0-51.0) 17.6 % (21.0-51.0) L Monocytes (%) (Auto) 6.1 % (3.0-13.0) 6.6 % (3.0-13.0) Eosinophils (%) (Auto) 0.0 % (0.0-8.0) 0.0 % (0.0-8.0) Basophils (%) (Auto) 0.3 % (0.0-5.0) 0.3 % (0.0-5.0) Neutrophils # (Auto) 2.5 K/uL (1.8-7.7) 3.0 K/uL (1.8-7.7) Lymphocytes # (Auto) 0.7 K/uL (1.0-4.8) L 0.7 K/uL (1.0-4.8) L Monocytes # (Auto) 0.2 K/uL (0.1-1.0) 0.3 K/uL (0.1-1.0) Eosinophils # (Auto) 0.00 K/uL (0.00-0.70) 0.00 K/uL (0.00-0.70) Basophils # (Auto) 0.01 K/uL (0.00-0.20) 0.01 K/uL (0.00-0.20) Absolute Immature Granulocyte (auto 0.02 K/uL (0-1) 0.01 K/uL (0-1) Nucleated Red Blood Cells 0.0 % (0.0-0.19) 0.0 % (0.0-0.19) Sodium Level 128 mmol/L (136-145) L 138 mmol/L (136-145) Potassium Level 3.0 mmol/L (3.5-5.1) *L 3.6 mmol/L (3.5-5.1) Chloride Level 93 mmol/L (101-111) L 102 mmol/L (101-111) Carbon Dioxide Level 30 mmol/L (21-32) 26 mmol/L (21-32) Blood Urea Nitrogen 4 mg/dL (7-18) L 2 mg/dL (7-18) L Creatinine 0.8 mg/dL (0.5-1.0) 0.7 mg/dL (0.5-1.0) Glomerular Filtration Rate Calc 97 mL/min (>90) 114 mL/min (>90) Random Glucose 102 mg/dL (70-105) 107 mg/dL (70-105) H Lactic Acid Level 1.4 mmol/L (0.8-2.5) Total Calcium 9.1 mg/dL (8.5-10.1) 8.1 mg/dL (8.5-10.1) L Troponin I High Sensitivity < 4 ng/L (4-50) L Urine Color YELLOW (YELLOW) Urine Appearance CLOUDY (CLEAR) H Urine pH 7.0 (5.0-8.0) Urine Specific [place] 1.027 (1.001-1.031) Urine Protein 30 mg/dL (NEGATIVE) H Urine Glucose (UA) NEGATIVE mg/dL (NEGATIVE) Urine Ketones 10 mg/dL (NEGATIVE) H Urine Occult Blood NEGATIVE (NEGATIVE) Urine Nitrate NEGATIVE (NEGATIVE) Urine Bilirubin NEGATIVE mg/dL (NEGATIVE) Urine Urobilinogen >=8.0 mg/dL (0.2-1.0) H Urine Leukocyte Esterase 75 [place]/uL (NEGATIVE) H Urine RBC 6-10 /HPF (0-1) H Urine WBC 6-10 /HPF (0-1) H Urine Squamous Epithelial Cells MANY /HPF (0-2) Urine Bacteria MOD /HPF (None Seen) Hemoglobin A1c 5.8 % (4.0-6.0) Estimated Average Glucose (eAG) 120 mg/dL (70-126) Phosphorus Level 2.2 mg/dL (2.5-4.9) L Magnesium Level 1.60 mg/dL (1.80-2.40) L Thyroid Stimulating Hormone (TSH) 0.59 uIU/mL (0.36-3.74) CELSA CLAY MD Mar 15, 2024 14:12
[2024-03-15] MEDS: ibuPROFEN 600 MG TABLET PO PRN (16:06)
[2024-03-15] MEDS ORDERED: CEFTRIAXONE 2GM VIAL IVPB SCH (20:00)
[2024-03-15] MEDS: DOXYCYCLINE HYCLATE 100 MG TABLET PO SCH (20:41)
[2024-03-15] MEDS: ondanSETRON 4MG INJ IVP PRN (21:21)
[2024-03-16] VITALS (10 sets, daily range): BP systolic 114–128; BP diastolic 66–83; PULSE 68–109; RESP 18–19; TEMP 97.9–101; O2SAT 98–99
[2024-03-16 04:05] LABS: BASOPHILS # (AUTO) 0.02 K/uL (0.00-0.20); BASOPHILS % (AUTO) 0.5 % (0.0-5.0); HEMATOCRIT 37.1 % (36-48); IMMATURE GRANULOCYTE ABSOLUTE 0.01 K/uL (0-1); LYMPHOCYTES # (AUTO) 0.6 K/uL (1.0-4.8); LYMPHOCYTES % (AUTO) 15.8 % (21.0-51.0); MEAN CORPUSCULAR HEMOGLOBIN 29.3 pg (27.0-33.0); MEAN CORPUSCULAR HGB CONC 33.2 g/dL (32.0-36.0); MEAN CORPUSCULAR VOLUME 88.3 fL (79-99); MONOCYTES # (AUTO) 0.1 K/uL (0.1-1.0); MONOCYTES % (AUTO) 3.4 % (3.0-13.0); NEUTROPHILS # (AUTO) 3.1 K/uL (1.8-7.7); PLATELET COUNT (AUTO) 157 K/uL (130-400); RED CELL DISTRIBUTION WIDTH 12.5 % (11.0-15.5); WHITE BLOOD COUNT (AUTO) 3.9 K/uL (4.8-10.8)
[2024-03-16 04:25] LABS: ALBUMIN 2.8 g/dL (3.5-5.0); BILIRUBIN,TOTAL 0.7 mg/dL (0.2-1.0); CREATININE 0.7 mg/dL (0.5-1.0); MAGNESIUM 1.9 mg/dL (1.80-2.40); POTASSIUM 3.7 mmol/L (3.5-5.1); TOTAL PROTEIN, SERUM 6.8 g/dL (6.0-8.3)
--- NOTE | 2024-03-16 06:29 | PN ---
INFECTIOUS DISEASE FOLLOWUP NOTE DATE OF SERVICE: 03/15/2024 SUBJECTIVE: The patient is seen and examined at bedside today. ____ chills and weakness. The patient also noticed with some rashes. The patient has been evaluated by handle lathe operator. Peripheral smear revealed band and toxic granulation ____ infection. PHYSICAL EXAMINATION: VITAL SIGNS: Temperature 99.6. EYES: No icterus. Pupils equal and reactive. HENT: No oral thrush seen. Moist oral mucosa. NECK: Supple, no JVD or thyromegaly. LUNGS: Good air entry. No rales, no rhonchi. CARDIOVASCULAR: S1, S2 regular. No murmur heard. ABDOMEN: Full, soft, nontender, obese. No organomegaly. CENTRAL NERVOUS SYSTEM: Awake, alert, oriented x 3. No focal deficits. SKIN: The patient has some petechial lesions. LYMPHATIC: No peripheral lymphadenopathy. MUSCULOSKELETAL: No joint swelling, erythema or tenderness. ASSESSMENT: A 38-year-old female admitted with fever, chills. CURRENT PROBLEMS: Include: * Sepsis. * Urinary tract infection. * Possible rickettsial infection. * Leukopenia. * Obesity. PLAN: * Continue ceftriaxone. * Start the patient on doxycycline. * ____ rickettsial serology. * Continue pain management. * Continue antiemetic. * Continue Tylenol as needed for pain or fever. TID: [id number] RECEIPT: [id number]
--- NOTE | 2024-03-16 11:06 | PN ---
[facility] PROGRESS NOTE Date of Service: Mar 16, 2024 Time of Service: 11:[address] Prado SUBJECTIVE: [ Ms. Perez is a 38-year-old female with a history of anemia who presented [facility] emergency department for evaluation of fever, nausea, chills, headache, left flank pain onset Wednesday. Patient denies any abdominal pain, vomiting, sore throat, cough, ear pain. Flu and COVID swabs were negative. Chest x-ray: 1. No acute pulmonary infiltrate is seen. Ultrasound soft tissue neck: 1. Left cervical adenopathy with the largest lymph node measuring 4.2 x 1.6 cm. EKG: Sinus tachycardia. UA positive for leuk EST, ketones, protein, urobilinogen. ED provider request patient be admitted under the [facility] team with the diagnosis of pyelonephritis, sepsis, hypokalemia, hyponatremia, dehydration, fever, lymphadenopathy. 03/15 patient was seen by nurse practitioner and physician during rounding in room 305. Patient's COVID influenza a and influenza B continues to be negative. Soft tissue ultrasound showed left cervical adenopathy with the largest lymph node measuring 4.2 x 1.6 cm. At this moment we will order CT chest without the contrast and it is negative. We also consulted ID since patient has been having leukocytosis since Wednesday. Patient's potassium and magnesium will be replaced with 40 mEq of potassium and 2 g of magnesium. Patient denies any HIV, aids , immunosuppressive disease or any cancer history. Oncologist/disintegrator operator was also consulted by ID. In the meantime we will continue to monitor patient.am labs 03/16 patient was seen by nurse practitioner and physician during rounding in room 305. Patient was evaluated by oncologist and is recommending to place patient on folic acid 1 mg p.o. daily, vitamin B12 1000 mg daily no bone marrow at this moment. He will recommend antibiotics 1st per ID and the patient will not respond to antibiotics then he will step in and help with the further care. Patient is on and off with the fevers. Patient denies any shortness of breath, chest pain, nausea, vomiting. We will continue to monitor patient. A.m. labs. Replace electrolytes per protocol.] REVIEW OF SYSTEMS 12-point ROS reviewed with patient. All pertinent positives mentioned above. Otherwise negative, non-pertinent, or noncontributory. PHYSICAL EXAM GENERAL APPEARANCE: The patient is awake, alert, and oriented, in no acute cardiopulmonary distress. NEUROLOGICAL: Cranial nerves II-XII grossly intact. Motor is 5/5 in bilateral upper and lower extremities proximal to distal. No sensory deficits. HEENT: Face is symmetric. Pupils are equal and reactive. Extraocular movements are intact. NECK: Supple. No JVD. No thyromegaly. No submental, submandibular, pre- /postauricular, occipital or supraclavicular lymphadenopathy. CHEST: Normal chest expansion. No Telemetry. LUNGS: Absence of any rales, rhonchi or any wheezing. CARDIOVASCULAR: Regular. S1 and S2 normal. No appreciable rubs, murmurs or gallops. ABDOMEN: Soft, nontender, and nondistended. There is no rebound, voluntary guarding, or rigidity. : Deferred. No Maurice. EXTREMITIES: Non-edematous and not cyanotic. No clubbing. Good capillary refill. SKIN: No skin breakdown. Vital Signs (last 8hr) Date Time Temp Pulse Resp B/P (MAP) Pulse Ox O2 Delivery O2 Flow Rate FiO2 03/16/24 08:07 100.0 102 18 121/72 98 Room Air 03/16/24 08:00 98 Room Air* 0 21 03/16/24 04:00 98.4 88 18 114/66 97 Room Air LABS: Laboratory: Test 03/16/24 03:53 03/15/24 05:06 03/14/24 19:38 03/14/24 18:17 Range/Units White Blood Count 3.9 L 4.8-10.8 K/uL Red Blood Count 4.20 4.00-5.50 MIL/uL Hemoglobin 12.3 12.0-16.0 g/dL Hematocrit 37.1 36-48 % Mean Corpuscular Volume 88.3 79-99 fL Mean Corpuscular Hemoglobin 29.3 27.0-33.0 pg Mean Corpuscular Hemoglobin Concent 33.2 32.0-36.0 g/dL Red Cell Distribution Width 12.5 11.0-15.5 % Platelet Count 157 130-400 K/uL Mean Platelet Volume 9.5 7.5-10.5 fL Immature Granulocyte % (Auto) 0.3 0-1 % Neutrophils (%) (Auto) 80.0 H 40.0-77.0 % Lymphocytes (%) (Auto) 15.8 L 21.0-51.0 % Monocytes (%) (Auto) 3.4 3.0-13.0 % Eosinophils (%) (Auto) 0.0 0.0-8.0 % Basophils (%) (Auto) 0.5 0.0-5.0 % Neutrophils # (Auto) 3.1 1.8-7.7 K/uL Lymphocytes # (Auto) 0.6 L 1.0-4.8 K/uL Monocytes # (Auto) 0.1 0.1-1.0 K/uL Eosinophils # (Auto) 0.00 0.00-0.70 K/uL Basophils # (Auto) 0.02 0.00-0.20 K/uL Absolute Immature Granulocyte (auto 0.01 0-1 K/uL Nucleated Red Blood Cells 0.0 0.0-0.19 % Sodium Level 131 L 136-145 mmol/L Potassium Level 3.7 3.5-5.1 mmol/L Chloride Level 100 L 101-111 mmol/L Carbon Dioxide Level 25 21-32 mmol/L Blood Urea Nitrogen 4 L 7-18 mg/dL Creatinine 0.7 0.5-1.0 mg/dL Glomerular Filtration Rate Calc 114 >90 mL/min Random Glucose 108 H 70-105 mg/dL Total Calcium 8.2 L 8.5-10.1 mg/dL Magnesium Level 1.90 1.80-2.40 mg/dL Total Bilirubin 0.7 0.2-1.0 mg/dL Aspartate Amino Transf (AST/SGOT) 171 H 10-37 U/L Alanine Aminotransferase (ALT/SGPT) 198 H 12-78 U/L Alkaline Phosphatase 121 50-136 U/L Total Protein 6.8 6.0-8.3 g/dL Albumin 2.8 L 3.5-5.0 g/dL Hemoglobin A1c 5.8 4.0-6.0 % Estimated Average Glucose (eAG) 120 70-126 mg/dL Phosphorus Level 2.2 L 2.5-4.9 mg/dL Thyroid Stimulating Hormone (TSH) 0.59 0.36-3.74 uIU/mL Urine Color YELLOW YELLOW Urine Appearance CLOUDY H CLEAR Urine pH 7.0 5.0-8.0 Urine Specific [place] 1.027 1.001-1.031 Urine Protein 30 H NEGATIVE mg/dL Urine Glucose (UA) NEGATIVE NEGATIVE mg/dL Urine Ketones 10 H NEGATIVE mg/dL Urine Occult Blood NEGATIVE NEGATIVE Urine Nitrate NEGATIVE NEGATIVE Urine Bilirubin NEGATIVE NEGATIVE mg/dL Urine Urobilinogen >=8.0 H 0.2-1.0 mg/dL Urine Leukocyte Esterase 75 H NEGATIVE [place]/uL Urine RBC 6-10 H 0-1 /HPF Urine WBC 6-10 H 0-1 /HPF Urine Squamous Epithelial Cells MANY 0-2 /HPF Urine Bacteria MOD None Seen /HPF Lactic Acid Level 1.4 0.8-2.5 mmol/L Troponin I High Sensitivity < 4 L 4-50 ng/L Test 03/14/24 17:55 Range/Units Influenza Type A Antigen Negative For Type A NEGATIVE Influenza Type B Antigen Negative For Type B NEGATIVE SARS-CoV-2 Antigen (Rapid) PRESUMPTIVE NEGATIVE NEGATIVE Current Medications Medications (Trade) Dose Ordered Sig/Shira Route PRN Reason Start Time Stop Time Status Last Admin Dose Admin Acetaminophen (TYLenol 325MG TAB) 650 mg Q6H PRN PO FEVER/MILD PAIN LEVEL 1-3 03/15/24 03:00 04/14/24 02:59 03/16/24 00:29 650 MG Acetaminophen (TYLenol 650MG SUPPOSITORY) 650 mg Q6H PRN RC FEVER / MILD PAIN 1-3 IF NPO 03/15/24 03:00 04/14/24 02:59 Ceftriaxone Sodium (Rocephin 2gm Inj) 2 gm Q24H IVPB 03/15/24 06:00 03/25/24 05:59 03/16/24 05:37 2 GM Ceftriaxone Sodium (Rocephin 2gm Inj) 2 gm Q24H IVPB 03/15/24 20:00 03/15/24 02:58 DC Dextrose (D50w) 50 ml AD PRN IV HYPOGLYCEMIA PROTOCOL 03/15/24 03:00 04/14/24 02:59 Docusate Sodium (COLace 100MG CAP) 100 mg BID PRN PO c 03/15/24 03:00 04/14/24 02:59 Doxycycline Hyclate (Doxycycline Hyclate) 100 mg BID PO 03/15/24 21:00 03/25/24 20:59 03/16/24 09:16 100 MG Enoxaparin Sodium (Lovenox) 30 mg DAILY SQ 03/15/24 09:00 04/14/24 08:59 03/16/24 09:16 30 MG Glucagon (Glucagon 1mg Kit) 1 mg AD PRN IM HYPOGLYCEMIA PROTOCOL 03/15/24 03:00 04/14/24 02:59 Hydralazine HCl (APRESOLine 20MG INJ) 10 mg Q2H PRN IV SBP GREATER THAN 160 03/15/24 03:00 04/14/24 02:59 Ibuprofen (moTRIN) 600 mg Q4H PRN PO TEMPERATURE GREATER THAN 101.5 03/15/24 16:00 04/14/24 15:59 03/16/24 09:15 600 MG Ketorolac Tromethamine (toRADol) 15 mg Q6H PRN IV MODERATE PAIN (4-6) 03/15/24 10:30 03/20/24 10:29 03/15/24 11:58 15 MG Lactulose (Constulose 20gm/ 30ml Udcup) 20 gm Q6H PRN PO CONSTIPATION 03/15/24 03:00 04/14/24 02:59 Magnesium Sulfate 50 ml @ 0 mls/hr PROTOCOL PRN IV MAGNESIUM PROTOCOL 03/15/24 03:00 04/14/24 02:59 03/16/24 09:17 25 MLS/HR Ondansetron HCl (zoFRAN 4MG INJ) 4 mg Q6H PRN IVP NAUSEA/VOMITING 03/15/24 03:00 04/14/24 02:59 03/16/24 09:20 4 MG Pantoprazole Sodium (PROTonix 40MG TAB) 40 mg DAILY PO 03/15/24 09:00 04/14/24 08:59 03/16/24 09:16 40 MG Potassium Chloride 100 ml @ 100 mls/hr AD PRN IV POTASSIUM PROTOCOL 03/15/24 03:00 04/14/24 02:59 Potassium Chloride (K-Dur/Klor-Con 20meq) 20 meq AD PRN PO POTASSIUM PROTOCOL 03/15/24 03:00 04/14/24 02:59 03/16/24 05:38 20 MEQ Potassium Chloride (KCl 10% Elixir 20meq/15ml) 20 meq AD PRN PO POTASSIUM PROTOCOL 03/15/24 03:00 04/14/24 02:59 Sodium Chloride 1,000 ml @ 125 mls/hr Q8H IV 03/14/24 22:30 04/13/24 22:29 03/16/24 05:37 125 MLS/HR Temazepam (restORIL 15 MG CAP) 15 mg HS PRN PO INSOMNIA/SLEEP 03/15/24 03:00 04/14/24 02:59 DIAGNOSTICS / RADIOLOGY: [ ] ASSESSMENT: Pyelonephritis, POA Acute complicated cystitis, POA Left cervical adenopathy with the largest lymph node measuring 4.2 x 1.6 cm, POA Electrolyte derangement (hyponatremia, hypokalemia, hypochloremia Dehydration Chronic problem list: anemia PLAN: Admit patient to medical floor. Continue antibiotic therapy: Rocephin2 g IV daily. IV hydration: NS at 125 mL an hour. P.r.n. medications for: Pain management, fever, nausea, vomiting, constipation, hypertension. Monitor renal and liver function. Monitor electrolytes and treat accordingly. DVT and GI prophylaxis. A.m. labs Further orders per hospitalization course. CT chest without contrast negative Consult ID Consult oncologist Consult disintegrator operator/oncologist ATTESTATION BY PHYSICIAN I have seen and examined the patient. I reviewed the documentation, medical decision making, and treatment plan as noted by the mid-level provider above. I agree with the findings and plan of care. Sayra Prado MD, [employer] SECUR[employer] OPERATIONS SPECIALIST Mar 16, 2024 11:06
--- NOTE | 2024-03-16 15:32 | PN ---
Ms. Perez is a 38-year-old female with a history of anemia who presented [facility] [place] emergency department for evaluation of fever, nausea, chills, headache, left flank pain onset Wednesday. Patient denies any abdominal pain, vomiting, sore throat, cough, ear pain. Flu and COVID swabs were negative. Chest x-ray: 1. No acute pulmonary infiltrate is seen. Ultrasound soft tissue neck: 1. Left cervical adenopathy with the largest lymph node measuring 4.2 x 1.6 cm. EKG: Sinus tachycardia. UA positive for leuk EST, ketones, protein, urobilinogen. ED provider request patient be admitted under the [facility] team with the diagnosis of pyelonephritis, sepsis, hypokalemia, hyponatremia, dehydration, fever, lymphadenopathy. Went to assess the patient at bedside. Patient appeared comfortable, in no distress. Patient reports she had no longer has a fever but has a headache. Family member was at bedside. I informed them of labs, diagnostics, and plan of care. They verbalized understanding and are in agreement with plan. REVIEW OF SYSTEMS 12-point ROS reviewed with patient. All pertinent positives mentioned above. Otherwise negative, non-pertinent, or noncontributory. PAST MEDICAL HISTORY: Anemia PAST SURGICAL HISTORY: None PAST SOCIAL HISTORY: Denies alcohol, tobacco, illicit drug use Lives with family FAMILY HISTORY: Noncontributory Coded Allergies: No Known Drug Allergies (Verified Allergy, Unknown, 08/23/13) PHYSICAL EXAM GENERAL APPEARANCE: The patient is awake, alert, and oriented, in no acute cardiopulmonary distress. NEUROLOGICAL: Cranial nerves II-XII grossly intact. Motor is 5/5 in bilateral upper and lower extremities proximal to distal. No sensory deficits. HEENT: Face is symmetric. Pupils are equal and reactive. Extraocular movements are intact. NECK: Supple. No JVD. No thyromegaly. No submental, submandibular, pre- /postauricular, occipital or supraclavicular lymphadenopathy. CHEST: Normal chest expansion. No Telemetry. LUNGS: Absence of any rales, rhonchi or any wheezing. CARDIOVASCULAR: Regular. S1 and S2 normal. No appreciable rubs, murmurs or gallops. ABDOMEN: Soft, nontender, and nondistended. There is no rebound, voluntary guarding, or rigidity. : Deferred. No Maurice. EXTREMITIES: Non-edematous and not cyanotic. No clubbing. Good capillary refill. SKIN: No skin breakdown. Assessment 1. Neutropenia 2. Fever chills 3. Left cervical adenopathy 4. Pyelonephritis 5. History of anemia but hemoglobin level is 12.3 g/deciliter Plan 1. Peripheral blood smear showed red blood cells to be normLAB RESULTS 03/16/24 03:53: White Blood Count 3.9L, Red Blood Count 4.20, Hemoglobin 12.3, Hematocrit 37.1, Mean Corpuscular Volume 88.3, Mean Corpuscular Hemoglobin 29.3, Mean Corpuscular Hemoglobin Concent 33.2, Red Cell Distribution Width 12.5, Platelet Count 157, Mean Platelet Volume 9.5, Immature Granulocyte % (Auto) 0.3, Neutrophils (%) (Auto) 80.0H, Lymphocytes (%) (Auto) 15.8L, Monocytes (%) (Auto) 3.4, Eosinophils (%) (Auto) 0.0, Basophils (%) (Auto) 0.5, Neutrophils # (Auto) 3.1, Lymphocytes # (Auto) 0.6L, Monocytes # (Auto) 0.1, Eosinophils # (Auto) 0.00, Basophils # (Auto) 0.02, Absolute Immature Granulocyte (auto 0.01, Nucleated Red Blood Cells 0.0, Sodium Level 131L, Potassium Level 3.7, Chloride Level 100L, Carbon Dioxide Level 25, Blood Urea Nitrogen 4L, Creatinine 0.7, Glomerular Filtration Rate Calc 114, Random Glucose 108H, Total Calcium 8.2L, Magnesium Level 1.90, Total Bilirubin 0.7, Aspartate Amino Transf (AST/SGOT) 171H, Alanine Aminotransferase (ALT/SGPT) 198H, Alkaline Phosphatase 121, Total Protein 6.8, Albumin 2.8L 03/15/24 05:06: Hemoglobin A1c 5.8, Estimated Average Glucose (eAG) 120, Phosphorus Level 2.2L, Thyroid Stimulating Hormone (TSH) 0.59 03/14/24 19:38: Urine Color YELLOW, Urine Appearance CLOUDYH, Urine pH 7.0, Urine Specific [place] 1.027, Urine Protein 30H, Urine Glucose (UA) NEGATIVE, Urine Ketones 10H, Urine Occult Blood NEGATIVE, Urine Nitrate NEGATIVE, Urine Bilirubin NEGATIVE, Urine Urobilinogen >=8.0H, Urine Leukocyte Esterase 75H, Urine RBC 6- 10H, Urine WBC 6-10H, Urine Squamous Epithelial Cells MANY, Urine Bacteria MOD 03/14/24 18:17: Lactic Acid Level 1.4, Troponin I High Sensitivity < 4L 03/14/24 17:55: Influenza Type A Antigen Negative For Type A, Influenza Type B Antigen Negative For Type B, SARS-CoV-2 Antigen (Rapid) PRESUMPTIVE NEGATIVE ocytic normochromic. There was no fragment cell or schistocyte. There is no teardrop cell. There is no rouleaux phenomena. There is no pelger-Huet cell. White blood cell with no blasts. Platelet was normal in morphology and count. 2. There was hypersegmented neutrophils. This patient to be started on folic acid 1 mg p.o. daily and vitamin B12 1000 mcg p.o. daily. 3. There is increased number of neutrophils, bands and toxic granulation and vacuolation. This is consistent with infection most likely atypical infection. I discussed the case with infectious diseases specialist. Maybe we need to add doxycycline or tetracycline to cover atypical infection. 4. We will follow-up with this patient closely. 5. No need for bone marrow biopsy or biopsy of the lymph node at this time. If the symptoms did not resolve with antibiotic treatment then maybe biopsy of the lymph node is indicated Vitals/Labs Vital Signs Date Time Temp Pulse Resp B/P (MAP) Pulse Ox O2 Delivery O2 Flow Rate FiO2 03/16/24 12:00 99.1 68 18 120/69 100 Room Air 03/16/24 08:00 0 21 Laboratory Tests 03/16/24 03:53 Medications Current Medications Sodium Chloride 1,000 ml @ 0 mls/hr ONCE ONCE IV Last administered on 03/14/24at 19:53; Start 03/14/24 at 18:00; Stop 03/14/24 at 18:01; Status DC Ondansetron HCl 4 mg ONCE ONCE IVP Last administered on 03/14/24at 19:53; Start 03/14/24 at 18:00; Stop 03/14/24 at 18:01; Status DC Acetaminophen 1,000 mg ONCE ONCE PO Last administered on 03/14/24at 19:03; Start 03/14/24 at 18:00; Stop 03/14/24 at 18:01; Status DC Ceftriaxone Sodium 2 gm ONCE ONCE IVPB Last administered on 03/14/24at 19:53; Start 03/14/24 at 18:00; Stop 03/14/24 at 18:01; Status DC Potassium Bicarbonate 50 meq ONCE ONCE PO Last administered on 03/14/24at 21:30; Start 03/14/24 at 20:30; Stop 03/14/24 at 20:34; Status DC Ceftriaxone Sodium 2 gm Q24H IVPB; Start 03/15/24 at 20:00; Stop 03/15/24 at 02:58; Status DC Sodium Chloride 1,000 ml @ 125 mls/hr Q8H IV Last administered on 03/16/24at 05:37; Start 03/14/24 at 22:30; Stop 04/13/24 at 22:29 Enoxaparin Sodium 30 mg DAILY SQ Last administered on 03/16/24at 09:16; Start 03/15/24 at 09:00; Stop 04/14/24 at 08:59 Acetaminophen 650 mg Q6H PRN PO Last administered on 03/16/24at 11:56; Start 03/15/24 at 03:00; Stop 04/14/24 at 02:59 Acetaminophen 650 mg Q6H PRN RC; Start 03/15/24 at 03:00; Stop 04/14/24 at 02:59 Lactulose 20 gm Q6H PRN PO; Start 03/15/24 at 03:00; Stop 04/14/24 at 02:59 Docusate Sodium 100 mg BID PRN PO; Start 03/15/24 at 03:00; Stop 04/14/24 at 02:59 Temazepam 15 mg HS PRN PO; Start 03/15/24 at 03:00; Stop 04/14/24 at 02:59 Ondansetron HCl 4 mg Q6H PRN IVP Last administered on 03/16/24at 09:20; Start 03/15/24 at 03:00; Stop 04/14/24 at 02:59 Hydralazine HCl 10 mg Q2H PRN IV; Start 03/15/24 at 03:00; Stop 04/14/24 at 02:59 Ceftriaxone Sodium 2 gm Q24H IVPB Last administered on 03/16/24at 05:37; Start 03/15/24 at 06:00; Stop 03/25/24 at 05:59 Dextrose 50 ml AD PRN IV; Start 03/15/24 at 03:00; Stop 04/14/24 at 02:59 Glucagon 1 mg AD PRN IM; Start 03/15/24 at 03:00; Stop 04/14/24 at 02:59 Magnesium Sulfate 50 ml @ 0 mls/hr PROTOCOL PRN IV Last administered on 03/16/24at 09:17; Start 03/15/24 at 03:00; Stop 04/14/24 at 02:59 Potassium Chloride 100 ml @ 100 mls/hr AD PRN IV; Start 03/15/24 at 03:00; Stop 04/14/24 at 02:59 Potassium Chloride 20 meq AD PRN PO; Start 03/15/24 at 03:00; Stop 04/14/24 at 02:59 Potassium Chloride 20 meq AD PRN PO Last administered on 03/16/24at 05:38; Start 03/15/24 at 03:00; Stop 04/14/24 at 02:59 Pantoprazole Sodium 40 mg DAILY PO Last administered on 03/16/24at 09:16; Start 03/15/24 at 09:00; Stop 04/14/24 at 08:59 Ketorolac Tromethamine 15 mg Q6H PRN IV Last administered on 03/15/24at 11:58; Start 03/15/24 at 10:30; Stop 03/20/24 at 10:29 Doxycycline Hyclate 100 mg BID PO Last administered on 03/16/24at 09:16; Start 03/15/24 at 21:00; Stop 03/25/24 at 20:59 Ibuprofen 600 mg Q4H PRN PO Last administered on 03/16/24at 09:15; Start 03/15/24 at 16:00; Stop 04/14/24 at 15:59 CELSA CLAY MD Mar 16, 2024 15:32
--- NOTE | 2024-03-16 17:11 | PN ---
INFECTIOUS DISEASE FOLLOWUP NOTE DATE OF SERVICE: 03/16/2024 SUBJECTIVE: The patient is seen and examined at bedside today. The patient has no fever, no chills. No rashes or itchiness. No palpitation or orthopnea. No dysuria or hematuria. No neck pain or neck swelling. PHYSICAL EXAMINATION: VITAL SIGNS: Temperature today 97.5. EYES: No icterus. Pupils equal and reactive. HENT: No oral thrush seen. Moist oral mucosa. NECK: Supple, no JVD or thyromegaly. LUNGS: Good air entry. No rales, no rhonchi. CARDIOVASCULAR: S1, S2 regular. No murmurs heard. ABDOMEN: Full, soft. Bowel sounds are still present. CENTRAL NERVOUS SYSTEM: Awake, alert, oriented x 3. No focal deficits. ____ ASSESSMENT: A 38-year-old female with multiple problems include: * Sepsis. * Possible rickettsial infection. * Leukopenia. * Obesity. PLAN: * Continue ceftriaxone. * Continue doxycycline. * Continue pain management. * Monitor electrolytes. * Continue GI prophylaxis. * Follow up cultures. TID: [id number] RECEIPT: [id number]
[2024-03-16] MEDS: guaiFENesin-DM 200/20MG 10ML PO PRN (20:16)
[2024-03-17] VITALS (7 sets, daily range): BP systolic 102–129; BP diastolic 60–88; PULSE 80–101; RESP 18; TEMP 98–99.9; O2SAT 97
[2024-03-17 04:34] LABS: BASOPHILS # (AUTO) 0.03 K/uL (0.00-0.20); BASOPHILS % (AUTO) 0.6 % (0.0-5.0); EOSINOPHILS # (AUTO) 0.01 K/uL (0.00-0.70); EOSINOPHILS % (AUTO) 0.2 % (0.0-8.0); HEMATOCRIT 35.8 % (36-48); IMMATURE GRANULOCYTE ABSOLUTE 0.02 K/uL (0-1); LYMPHOCYTES # (AUTO) 1.1 K/uL (1.0-4.8); MEAN CORPUSCULAR HEMOGLOBIN 29.4 pg (27.0-33.0); MEAN CORPUSCULAR VOLUME 89.3 fL (79-99); MONOCYTES # (AUTO) 0.2 K/uL (0.1-1.0); MONOCYTES % (AUTO) 4.6 % (3.0-13.0); NEUTROPHILS # (AUTO) 3.4 K/uL (1.8-7.7); NEUTROPHILS % (AUTO) 71.2 % (40.0-77.0); PLATELET COUNT (AUTO) 123 K/uL (130-400); RED BLOOD CELL COUNT(AUTO) 4.01 MIL/uL (4.00-5.50); RED CELL DISTRIBUTION WIDTH 12.8 % (11.0-15.5); WHITE BLOOD COUNT (AUTO) 4.7 K/uL (4.8-10.8)
[2024-03-17 04:44] LABS: ALBUMIN 2.6 g/dL (3.5-5.0); BILIRUBIN,TOTAL 1.1 mg/dL (0.2-1.0); CREATININE 0.6 mg/dL (0.5-1.0); MAGNESIUM 1.8 mg/dL (1.80-2.40); POTASSIUM 3.7 mmol/L (3.5-5.1); TOTAL PROTEIN, SERUM 6.5 g/dL (6.0-8.3)
--- NOTE | 2024-03-17 11:43 | PN ---
[facility] PROGRESS NOTE Date of Service: Mar 17, 2024 Time of Service: 11:39 SUBJECTIVE: [ Ms. Perez is a 38-year-old female with a history of anemia who presented [facility] emergency department for evaluation of fever, nausea, chills, headache, left flank pain onset Wednesday. Patient denies any abdominal pain, vomiting, sore throat, cough, ear pain. Flu and COVID swabs were negative. Chest x-ray: 1. No acute pulmonary infiltrate is seen. Ultrasound soft tissue neck: 1. Left cervical adenopathy with the largest lymph node measuring 4.2 x 1.6 cm. EKG: Sinus tachycardia. UA positive for leuk EST, ketones, protein, urobilinogen. ED provider request patient be admitted under the [facility] team with the diagnosis of pyelonephritis, sepsis, hypokalemia, hyponatremia, dehydration, fever, lymphadenopathy. 03/15 patient was seen by nurse practitioner and physician during rounding in room 305. Patient's COVID influenza a and influenza B continues to be negative. Soft tissue ultrasound showed left cervical adenopathy with the largest lymph node measuring 4.2 x 1.6 cm. At this moment we will order CT chest without the contrast and it is negative. We also consulted ID since patient has been having leukocytosis since Wednesday. Patient's potassium and magnesium will be replaced with 40 mEq of potassium and 2 g of magnesium. Patient denies any HIV, aids , immunosuppressive disease or any cancer history. Oncologist/systems mgr was also consulted by ID. In the meantime we will continue to monitor patient.am labs 03/16 patient was seen by nurse practitioner and physician during rounding in room 305. Patient was evaluated by oncologist and is recommending to place patient on folic acid 1 mg p.o. daily, vitamin B12 1000 mg daily no bone marrow at this moment. He will recommend antibiotics 1st per ID and the patient will not respond to antibiotics then he will step in and help with the further care. Patient is on and off with the fevers. Patient denies any shortness of breath, chest pain, nausea, vomiting. We will continue to monitor patient. A.m. labs. Replace electrolytes per protocol.] 03/17 patient is having persistent fever T-max 100.9 overnight. Patient was no gemma with possible atypical infection was started with doxycycline. We will continue to monitor closely and repeat labs tomorrow. REVIEW OF SYSTEMS 12-point ROS reviewed with patient. All pertinent positives mentioned above. Otherwise negative, non-pertinent, or noncontributory. PHYSICAL EXAM GENERAL APPEARANCE: The patient is awake, alert, and oriented, in no acute cardiopulmonary distress. NEUROLOGICAL: Cranial nerves II-XII grossly intact. Motor is 5/5 in bilateral upper and lower extremities proximal to distal. No sensory deficits. HEENT: Face is symmetric. Pupils are equal and reactive. Extraocular movements are intact. NECK: Supple. No JVD. No thyromegaly. No submental, submandibular, pre- /postauricular, occipital or supraclavicular lymphadenopathy. CHEST: Normal chest expansion. No Telemetry. LUNGS: Absence of any rales, rhonchi or any wheezing. CARDIOVASCULAR: Regular. S1 and S2 normal. No appreciable rubs, murmurs or gallops. ABDOMEN: Soft, nontender, and nondistended. There is no rebound, voluntary guarding, or rigidity. : Deferred. No Maurice. EXTREMITIES: Non-edematous and not cyanotic. No clubbing. Good capillary refill. SKIN: No skin breakdown. Vital Signs (last 8hr) Date Time Temp Pulse Resp B/P (MAP) Pulse Ox O2 Delivery O2 Flow Rate FiO2 03/17/24 08:00 98.4 98 18 125/74 97 Room Air 03/17/24 08:00 97 Room Air* 0 21 03/17/24 04:00 98.8 96 18 102/60 97 Room Air LABS: Laboratory: Test 03/17/24 03:50 Range/Units White Blood Count 4.7 L 4.8-10.8 K/uL Red Blood Count 4.01 4.00-5.50 MIL/uL Hemoglobin 11.8 L 12.0-16.0 g/dL Hematocrit 35.8 L 36-48 % Mean Corpuscular Volume 89.3 79-99 fL Mean Corpuscular Hemoglobin 29.4 27.0-33.0 pg Mean Corpuscular Hemoglobin Concent 33.0 32.0-36.0 g/dL Red Cell Distribution Width 12.8 11.0-15.5 % Platelet Count 123 L 130-400 K/uL Mean Platelet Volume 10.4 7.5-10.5 fL Immature Granulocyte % (Auto) 0.4 0-1 % Neutrophils (%) (Auto) 71.2 40.0-77.0 % Lymphocytes (%) (Auto) 23.0 21.0-51.0 % Monocytes (%) (Auto) 4.6 3.0-13.0 % Eosinophils (%) (Auto) 0.2 0.0-8.0 % Basophils (%) (Auto) 0.6 0.0-5.0 % Neutrophils # (Auto) 3.4 1.8-7.7 K/uL Lymphocytes # (Auto) 1.1 1.0-4.8 K/uL Monocytes # (Auto) 0.2 0.1-1.0 K/uL Eosinophils # (Auto) 0.01 0.00-0.70 K/uL Basophils # (Auto) 0.03 0.00-0.20 K/uL Absolute Immature Granulocyte (auto 0.02 0-1 K/uL Nucleated Red Blood Cells 0.0 0.0-0.19 % Sodium Level 133 L 136-145 mmol/L Potassium Level 3.7 3.5-5.1 mmol/L Chloride Level 101 101-111 mmol/L Carbon Dioxide Level 26 21-32 mmol/L Blood Urea Nitrogen 4 L 7-18 mg/dL Creatinine 0.6 0.5-1.0 mg/dL Glomerular Filtration Rate Calc 118 >90 mL/min Random Glucose 106 H 70-105 mg/dL Total Calcium 8.1 L 8.5-10.1 mg/dL Magnesium Level 1.80 1.80-2.40 mg/dL Total Bilirubin 1.1 #H 0.2-1.0 mg/dL Aspartate Amino Transf (AST/SGOT) 505 H 10-37 U/L Alanine Aminotransferase (ALT/SGPT) 461 #H 12-78 U/L Alkaline Phosphatase 192 #H 50-136 U/L Total Protein 6.5 6.0-8.3 g/dL Albumin 2.6 L 3.5-5.0 g/dL Current Medications Medications (Trade) Dose Ordered Sig/Shira Route PRN Reason Start Time Stop Time Status Last Admin Dose Admin Acetaminophen (TYLenol 325MG TAB) 650 mg Q6H PRN PO FEVER/MILD PAIN LEVEL 1-3 03/15/24 03:00 04/14/24 02:59 03/17/24 02:20 650 MG Acetaminophen (TYLenol 650MG SUPPOSITORY) 650 mg Q6H PRN RC FEVER / MILD PAIN 1-3 IF NPO 03/15/24 03:00 04/14/24 02:59 Ceftriaxone Sodium (Rocephin 2gm Inj) 2 gm Q24H IVPB 03/15/24 06:00 03/25/24 05:59 03/17/24 05:06 2 GM Ceftriaxone Sodium (Rocephin 2gm Inj) 2 gm Q24H IVPB 03/15/24 20:00 03/15/24 02:58 DC Dextrose (D50w) 50 ml AD PRN IV HYPOGLYCEMIA PROTOCOL 03/15/24 03:00 04/14/24 02:59 Docusate Sodium (COLace 100MG CAP) 100 mg BID PRN PO c 03/15/24 03:00 04/14/24 02:59 Doxycycline Hyclate (Doxycycline Hyclate) 100 mg BID PO 03/15/24 21:00 03/25/24 20:59 03/17/24 08:20 100 MG Enoxaparin Sodium (Lovenox) 30 mg DAILY SQ 03/15/24 09:00 04/14/24 08:59 03/17/24 08:20 30 MG Glucagon (Glucagon 1mg Kit) 1 mg AD PRN IM HYPOGLYCEMIA PROTOCOL 03/15/24 03:00 04/14/24 02:59 Guaifenesin/ Dextromethorphan (RobiTUSSin DM 200/20MG 10ML) 10 ml Q4H PRN PO COUGH 03/16/24 18:30 04/15/24 18:29 03/17/24 08:22 10 ML Hydralazine HCl (APRESOLine 20MG INJ) 10 mg Q2H PRN IV SBP GREATER THAN 160 03/15/24 03:00 04/14/24 02:59 Ibuprofen (moTRIN) 600 mg Q4H PRN PO TEMPERATURE GREATER THAN 101.5 03/15/24 16:00 04/14/24 15:59 03/16/24 20:16 600 MG Ketorolac Tromethamine (toRADol) 15 mg Q6H PRN IV MODERATE PAIN (4-6) 03/15/24 10:30 03/20/24 10:29 03/17/24 08:23 15 MG Lactulose (Constulose 20gm/ 30ml Udcup) 20 gm Q6H PRN PO CONSTIPATION 03/15/24 03:00 04/14/24 02:59 Magnesium Sulfate 50 ml @ 0 mls/hr PROTOCOL PRN IV MAGNESIUM PROTOCOL 03/15/24 03:00 04/14/24 02:59 03/16/24 09:17 25 MLS/HR Ondansetron HCl (zoFRAN 4MG INJ) 4 mg Q6H PRN IVP NAUSEA/VOMITING 03/15/24 03:00 04/14/24 02:59 03/17/24 08:22 4 MG Pantoprazole Sodium (PROTonix 40MG TAB) 40 mg DAILY PO 03/15/24 09:00 04/14/24 08:59 03/17/24 08:20 40 MG Potassium Chloride 100 ml @ 100 mls/hr AD PRN IV POTASSIUM PROTOCOL 03/15/24 03:00 04/14/24 02:59 Potassium Chloride (K-Dur/Klor-Con 20meq) 20 meq AD PRN PO POTASSIUM PROTOCOL 03/15/24 03:00 04/14/24 02:59 03/16/24 20:16 20 MEQ Potassium Chloride (KCl 10% Elixir 20meq/15ml) 20 meq AD PRN PO POTASSIUM PROTOCOL 03/15/24 03:00 04/14/24 02:59 Sodium Chloride 1,000 ml @ 125 mls/hr Q8H IV 03/14/24 22:30 04/13/24 22:29 03/17/24 05:07 125 MLS/HR Temazepam (restORIL 15 MG CAP) 15 mg HS PRN PO INSOMNIA/SLEEP 03/15/24 03:00 04/14/24 02:59 DIAGNOSTICS / RADIOLOGY: [ ] ASSESSMENT: Suspected rickettsial infection, POA Pyelonephritis, POA Acute complicated cystitis, POA Left cervical adenopathy with the largest lymph node measuring 4.2 x 1.6 cm, POA Electrolyte derangement (hyponatremia, hypokalemia, hypochloremia Dehydration Chronic problem list: anemia PLAN: Admit patient to medical floor. Continue antibiotic therapy: Rocephin2 g IV daily and doxycycline 100 mg p.o. b.i.d. Continue with IV hydration: NS at 125 mL an hour. P.r.n. medications for: Pain management, fever, nausea, vomiting, constipation, hypertension. Monitor renal and liver function. Monitor electrolytes and treat accordingly. DVT and GI prophylaxis. A.m. labs Further orders per hospitalization course. CT chest without contrast negative unremarkable results Consulted Infectious Disease, we will continue to follow their recommendation We will follow recommendations from systems mgr oncologist. This patient was seen and examined with Dr. Prado, above plan was formulated ATTESTATION BY PHYSICIAN I have seen and examined the patient. I reviewed the documentation, medical decision making, and treatment plan as noted by the mid-level provider above. I agree with the findings and plan of care. Sayra Prado MD, [facility] Mar 17, 2024 11:43
[2024-03-17] MEDS: BENZONATATE 100 MG CAPSULE PO PRN (13:59)
--- NOTE | 2024-03-17 14:26 | PN ---
INFECTIOUS DISEASE PROGRESS NOTE Date of Service: Mar 17, 2024 SUBJECTIVE: This is a 38-year-old female patient who was admitted to the emergency room for evaluation of fever, nausea, chills and left flank pain. On admission patient had a fever of 102.6. Today, patient was seen and examined at bedside in room 305. Patient had a low- grade fever of 100.9 last night at midnight, current temperature however is 98.4. Liver enzymes still slightly elevated with AST at 505, ALT 461 and alk phos of 192. No growth reported yet on the blood cultures and urine cultures. Patient continues on doxycycline p.o. and ceftriaxone IV. Patient reported that she feels like a lump when she swallows. Patient's neck ultrasound showed a left cervical adenopathy with the largest one measuring 4.2 x 1.6 cm. Reported she is still having coughing episodes. Was started on Tessalon Perles. We will continue to monitor patient's care. PHYSICAL EXAM EYES: Anicteric. Pupils equal and reactive. HENT: No oral thrush seen, moist Oral mucosa. NECK: Supple, no JVD or thyromegaly. LUNGS: Good air entry. No rales, no rhonchi. Cough. CARDIOVASCULAR: S1, S2 regular. No murmur heard. ABDOMEN: Soft, non tender, bowel sounds present, no organomegaly. CENTRAL NERVOUS SYSTEM: Awake, alert, oriented x 3. SKIN: No rashes, no swelling. LYMPHATICS: No peripheral lymphadenopathy. MUSCULOSKELETAL: No joint swelling, erythema or tenderness. EXTREMITIES: No cyanosis or clubbing BACK: No deformity, no pressure ulcer. GENITOURINARY: No dysuria or hematuria.. Vital Sign (Last 12 Hours) 03/17/24 03/17/24 03/17/24 03/17/24 04:00 08:00 08:00 12:00 Temp 98.8 98.4 98.2 Pulse 96 98 96 Resp 18 18 18 B/P (MAP) 102/60 125/74 126/78 Pulse Ox 97 97 97 96 O2 Delivery Room Air Room Air* Room Air Room Air O2 Flow Rate 0 FiO2 21 Intake & Output (last 24hrs)0 03/16/24 03/16/24 03/17/24 15:00 23:00 07:00 Intake Total 1050.0 ml Balance 1050.0 ml LABS: Laboratory: Test 03/17/24 03:50 Range/Units White Blood Count 4.7 L 4.8-10.8 K/uL Red Blood Count 4.01 4.00-5.50 MIL/uL Hemoglobin 11.8 L 12.0-16.0 g/dL Hematocrit 35.8 L 36-48 % Mean Corpuscular Volume 89.3 79-99 fL Mean Corpuscular Hemoglobin 29.4 27.0-33.0 pg Mean Corpuscular Hemoglobin Concent 33.0 32.0-36.0 g/dL Red Cell Distribution Width 12.8 11.0-15.5 % Platelet Count 123 L 130-400 K/uL Mean Platelet Volume 10.4 7.5-10.5 fL Immature Granulocyte % (Auto) 0.4 0-1 % Neutrophils (%) (Auto) 71.2 40.0-77.0 % Lymphocytes (%) (Auto) 23.0 21.0-51.0 % Monocytes (%) (Auto) 4.6 3.0-13.0 % Eosinophils (%) (Auto) 0.2 0.0-8.0 % Basophils (%) (Auto) 0.6 0.0-5.0 % Neutrophils # (Auto) 3.4 1.8-7.7 K/uL Lymphocytes # (Auto) 1.1 1.0-4.8 K/uL Monocytes # (Auto) 0.2 0.1-1.0 K/uL Eosinophils # (Auto) 0.01 0.00-0.70 K/uL Basophils # (Auto) 0.03 0.00-0.20 K/uL Absolute Immature Granulocyte (auto 0.02 0-1 K/uL Nucleated Red Blood Cells 0.0 0.0-0.19 % Sodium Level 133 L 136-145 mmol/L Potassium Level 3.7 3.5-5.1 mmol/L Chloride Level 101 101-111 mmol/L Carbon Dioxide Level 26 21-32 mmol/L Blood Urea Nitrogen 4 L 7-18 mg/dL Creatinine 0.6 0.5-1.0 mg/dL Glomerular Filtration Rate Calc 118 >90 mL/min Random Glucose 106 H 70-105 mg/dL Total Calcium 8.1 L 8.5-10.1 mg/dL Magnesium Level 1.80 1.80-2.40 mg/dL Total Bilirubin 1.1 #H 0.2-1.0 mg/dL Aspartate Amino Transf (AST/SGOT) 505 H 10-37 U/L Alanine Aminotransferase (ALT/SGPT) 461 #H 12-78 U/L Alkaline Phosphatase 192 #H 50-136 U/L Total Protein 6.5 6.0-8.3 g/dL Albumin 2.6 L 3.5-5.0 g/dL ASSESSMENT: Possible rickettsial infection. Elevated liver enzymes. Leukopenia. Left cervical adenopathy per neck ultrasound. Obesity. PLAN: Continue ceftriaxone IV. Continue doxycycline p.o.. Continue GI prophylaxis. Continue pain management. Start Tessalon Perles on 200 mg every8 hours as needed for cough. We will follow up on the cultures. We will monitor liver enzymes. This case was reviewed and discussed with my supervising physician and the above assessment and plan was formulated and agreed upon. ATTESTATION BY PHYSICIAN I have seen and examined the patient. I reviewed the documentation, medical decision making, and treatment plan as noted by the mid-level provider above. I agree with the findings and plan of care. JAVON ELKINS MD, [facility] Mar 17, 2024 14:26
--- NOTE | 2024-03-17 14:33 | PN ---
Ms. Perez is a 38-year-old female with a history of anemia who presented [facility] emergency department for evaluation of fever, nausea, chills, headache, left flank pain onset Wednesday. Patient denies any abdominal pain, vomiting, sore throat, cough, ear pain. Flu and COVID swabs were negative. Chest x-ray: 1. No acute pulmonary infiltrate is seen. Ultrasound soft tissue neck: 1. Left cervical adenopathy with the largest lymph node measuring 4.2 x 1.6 cm. EKG: Sinus tachycardia. UA positive for leuk EST, ketones, protein, urobilinogen. ED provider request patient be admitted under the [facility] team with the diagnosis of pyelonephritis, sepsis, hypokalemia, hyponatremia, dehydration, fever, lymphadenopathy. Went to assess the patient at bedside. Patient appeared comfortable, in no distress. Patient reports she had no longer has a fever but has a headache. Family member was at bedside. I informed them of labs, diagnostics, and plan of care. They verbalized understanding and are in agreement with plan. REVIEW OF SYSTEMS 12-point ROS reviewed with patient. All pertinent positives mentioned above. Otherwise negative, non-pertinent, or noncontributory. PAST MEDICAL HISTORY: Anemia PAST SURGICAL HISTORY: None PAST SOCIAL HISTORY: Denies alcohol, tobacco, illicit drug use Lives with family FAMILY HISTORY: Noncontributory Coded Allergies: No Known Drug Allergies (Verified Allergy, Unknown, 08/23/13) PHYSICAL EXAM GENERAL APPEARANCE: The patient is awake, alert, and oriented, in no acute cardiopulmonary distress. NEUROLOGICAL: Cranial nerves II-XII grossly intact. Motor is 5/5 in bilateral upper and lower extremities proximal to distal. No sensory deficits. HEENT: Face is symmetric. Pupils are equal and reactive. Extraocular movements are intact. NECK: Supple. No JVD. No thyromegaly. No submental, submandibular, pre- /postauricular, occipital or supraclavicular lymphadenopathy. CHEST: Normal chest expansion. No Telemetry. LUNGS: Absence of any rales, rhonchi or any wheezing. CARDIOVASCULAR: Regular. S1 and S2 normal. No appreciable rubs, murmurs or gallops. ABDOMEN: Soft, nontender, and nondistended. There is no rebound, voluntary guarding, or rigidity. : Deferred. No Maurice. EXTREMITIES: Non-edematous and not cyanotic. No clubbing. Good capillary refill. SKIN: No skin breakdown. Assessment 1. Neutropenia. White blood count corrected at 4.7K. With the absolute neutrophil count is 71% 2. Fever chills 3. Left cervical adenopathy 4. Pyelonephritis 5. History of anemia but hemoglobin level is 12.3 g/deciliter Plan 1. Peripheral blood smear showed red blood cells to be normoocytic normochromic. There was no fragment cell or schistocyte. There is no teardrop cell. There is no rouleaux phenomena. There is no pelger-Huet cell. White blood cell with no blasts. Platelet was normal in morphology and count. 2. There was hypersegmented neutrophils. This patient to be started on folic acid 1 mg p.o. daily and vitamin B12 1000 mcg p.o. daily. 3. There is increased number of neutrophils, bands and toxic granulation and vacuolation. This is consistent with infection most likely atypical infection. I discussed the case with infectious diseases specialist. Maybe we need to add doxycycline or tetracycline to cover atypical infection. 4. We will follow-up with this patient closely. 5. No need for bone marrow biopsy or biopsy of the lymph node at this time. If the symptoms did not resolve with antibiotic treatment then maybe biopsy of the lymph node is indicated Vitals/Labs Vital Signs Date Time Temp Pulse Resp B/P (MAP) Pulse Ox O2 Delivery O2 Flow Rate FiO2 03/17/24 12:00 98.2 96 18 126/78 96 Room Air 03/17/24 08:00 0 21 Laboratory Tests 03/17/24 03:50 Medications Current Medications Sodium Chloride 1,000 ml @ 0 mls/hr ONCE ONCE IV Last administered on 03/14/24at 19:53; Start 03/14/24 at 18:00; Stop 03/14/24 at 18:01; Status DC Ondansetron HCl 4 mg ONCE ONCE IVP Last administered on 03/14/24at 19:53; Start 03/14/24 at 18:00; Stop 03/14/24 at 18:01; Status DC Acetaminophen 1,000 mg ONCE ONCE PO Last administered on 03/14/24at 19:03; Start 03/14/24 at 18:00; Stop 03/14/24 at 18:01; Status DC Ceftriaxone Sodium 2 gm ONCE ONCE IVPB Last administered on 03/14/24at 19:53; Start 03/14/24 at 18:00; Stop 03/14/24 at 18:01; Status DC Potassium Bicarbonate 50 meq ONCE ONCE PO Last administered on 03/14/24at 21:30; Start 03/14/24 at 20:30; Stop 03/14/24 at 20:34; Status DC Ceftriaxone Sodium 2 gm Q24H IVPB; Start 03/15/24 at 20:00; Stop 03/15/24 at 02:58; Status DC Sodium Chloride 1,000 ml @ 125 mls/hr Q8H IV Last administered on 03/17/24at 05:07; Start 03/14/24 at 22:30; Stop 04/13/24 at 22:29 Enoxaparin Sodium 30 mg DAILY SQ Last administered on 03/17/24at 08:20; Start 03/15/24 at 09:00; Stop 04/14/24 at 08:59 Acetaminophen 650 mg Q6H PRN PO Last administered on 03/17/24at 02:20; Start 03/15/24 at 03:00; Stop 04/14/24 at 02:59 Acetaminophen 650 mg Q6H PRN RC; Start 03/15/24 at 03:00; Stop 04/14/24 at 02:59 Lactulose 20 gm Q6H PRN PO; Start 03/15/24 at 03:00; Stop 04/14/24 at 02:59 Docusate Sodium 100 mg BID PRN PO; Start 03/15/24 at 03:00; Stop 04/14/24 at 02:59 Temazepam 15 mg HS PRN PO; Start 03/15/24 at 03:00; Stop 04/14/24 at 02:59 Ondansetron HCl 4 mg Q6H PRN IVP Last administered on 03/17/24at 08:22; Start 03/15/24 at 03:00; Stop 04/14/24 at 02:59 Hydralazine HCl 10 mg Q2H PRN IV; Start 03/15/24 at 03:00; Stop 04/14/24 at 02:59 Ceftriaxone Sodium 2 gm Q24H IVPB Last administered on 03/17/24at 05:06; Start 03/15/24 at 06:00; Stop 03/25/24 at 05:59 Dextrose 50 ml AD PRN IV; Start 03/15/24 at 03:00; Stop 04/14/24 at 02:59 Glucagon 1 mg AD PRN IM; Start 03/15/24 at 03:00; Stop 04/14/24 at 02:59 Magnesium Sulfate 50 ml @ 0 mls/hr PROTOCOL PRN IV Last administered on 03/16/24at 09:17; Start 03/15/24 at 03:00; Stop 04/14/24 at 02:59 Potassium Chloride 100 ml @ 100 mls/hr AD PRN IV; Start 03/15/24 at 03:00; Stop 04/14/24 at 02:59 Potassium Chloride 20 meq AD PRN PO; Start 03/15/24 at 03:00; Stop 04/14/24 at 02:59 Potassium Chloride 20 meq AD PRN PO Last administered on 03/16/24at 20:16; Start 03/15/24 at 03:00; Stop 04/14/24 at 02:59 Pantoprazole Sodium 40 mg DAILY PO Last administered on 03/17/24at 08:20; Start 03/15/24 at 09:00; Stop 04/14/24 at 08:59 Ketorolac Tromethamine 15 mg Q6H PRN IV Last administered on 03/17/24at 08:23; Start 03/15/24 at 10:30; Stop 03/20/24 at 10:29 Doxycycline Hyclate 100 mg BID PO Last administered on 03/17/24at 08:20; Start 03/15/24 at 21:00; Stop 03/25/24 at 20:59 Ibuprofen 600 mg Q4H PRN PO Last administered on 03/16/24at 20:16; Start 03/15/24 at 16:00; Stop 04/14/24 at 15:59 Guaifenesin/ Dextromethorphan 10 ml Q4H PRN PO Last administered on 03/17/24at 13:59; Start 03/16/24 at 18:30; Stop 04/15/24 at 18:29 Benzonatate 200 mg Q8H PRN PO Last administered on 03/17/24at 13:59; Start 03/17/24 at 13:30; Stop 04/16/24 at 13:29 CELSA CLAY MD Mar 17, 2024 14:33
--- NOTE | 2024-03-17 23:10 | NUR ---
PATIENT COMPLAINING OF HEADACHE. TEMPERATURE AT THIS TIME IS 98.8
[2024-03-18] VITALS (7 sets, daily range): BP systolic 115–132; BP diastolic 69–84; PULSE 62–96; RESP 17–20; TEMP 98.4–99.2; O2SAT 97–98
[2024-03-18 04:56] LABS: HEMATOCRIT 33.6 % (36-48); MEAN CORPUSCULAR HEMOGLOBIN 29.6 pg (27.0-33.0); MEAN CORPUSCULAR VOLUME 89.6 fL (79-99); RED BLOOD CELL COUNT(AUTO) 3.75 MIL/uL (4.00-5.50); WHITE BLOOD COUNT (AUTO) 6.1 K/uL (4.8-10.8)
[2024-03-18 05:25] LABS: ALBUMIN 2.4 g/dL (3.5-5.0); BILIRUBIN,DIRECT 0.5 mg/dL (0.0-0.3); BILIRUBIN,TOTAL 0.8 mg/dL (0.2-1.0); CREATININE 0.5 mg/dL (0.5-1.0); POTASSIUM 3.3 mmol/L (3.5-5.1); TOTAL PROTEIN, SERUM 6.1 g/dL (6.0-8.3)
--- NOTE | 2024-03-18 09:05 | PN ---
Ms. Perez is a 38-year-old female with a history of anemia who [place] [facility] [place] evaluation of fever, nausea, chills, headache, left flank pain onset Wednesday. Patient denies any abdominal pain, vomiting, sore throat, cough, ear pain. Flu and COVID swabs were negative. Chest x-ray: 1. No acute pulmonary infiltrate is seen. Ultrasound soft tissue neck: 1. Left cervical adenopathy with the largest lymph node measuring 4.2 x 1.6 cm. EKG: Sinus tachycardia. UA positive for leuk EST, ketones, protein, urobilinogen. ED provider request patient be admitted under the [facility] team with the diagnosis of pyelonephritis, sepsis, hypokalemia, hyponatremia, dehydration, fever, lymphadenopathy. Went to assess the patient at bedside. Patient appeared comfortable, in no distress. Patient reports she had no longer has a fever but has a headache. Family member was at bedside. I informed them of labs, diagnostics, and plan of care. They verbalized understanding and are in agreement with plan. REVIEW OF SYSTEMS 12-point ROS reviewed with patient. All pertinent positives mentioned above. Otherwise negative, non-pertinent, or noncontributory. PAST MEDICAL HISTORY: Anemia PAST SURGICAL HISTORY: None PAST SOCIAL HISTORY: Denies alcohol, tobacco, illicit drug use Lives with family FAMILY HISTORY: Noncontributory Coded Allergies: No Known Drug Allergies (Verified Allergy, Unknown, 08/23/13) PHYSICAL EXAM GENERAL APPEARANCE: The patient is awake, alert, and oriented, in no acute cardiopulmonary distress. NEUROLOGICAL: Cranial nerves II-XII grossly intact. Motor is 5/5 in bilateral upper and lower extremities proximal to distal. No sensory deficits. HEENT: Face is symmetric. Pupils are equal and reactive. Extraocular movements are intact. NECK: Supple. No JVD. No thyromegaly. No submental, submandibular, pre- /postauricular, occipital or supraclavicular lymphadenopathy. CHEST: Normal chest expansion. No Telemetry. LUNGS: Absence of any rales, rhonchi or any wheezing. CARDIOVASCULAR: Regular. S1 and S2 normal. No appreciable rubs, murmurs or gallops. ABDOMEN: Soft, nontender, and nondistended. There is no rebound, voluntary guarding, or rigidity. : Deferred. No Maurice. EXTREMITIES: Non-edematous and not cyanotic. No clubbing. Good capillary refill. SKIN: No skin breakdown. Assessment 1. Neutropenia. White blood count corrected at 6.1K. With the absolute neutrophil count is 71% 2. Fever chills 3. Left cervical adenopathy 4. Pyelonephritis 5. History of anemia but hemoglobin level is 12.3 g/deciliter Plan 1. Peripheral blood smear showed red blood cells to be normoocytic normochromic. There was no fragment cell or schistocyte. There is no teardrop cell. There is no rouleaux phenomena. There is no pelger-Huet cell. White blood cell with no blasts. Platelet was normal in morphology and count. 2. There was hypersegmented neutrophils. This patient to be started on folic acid 1 mg p.o. daily and vitamin B12 1000 mcg p.o. daily. 3. There is increased number of neutrophils, bands and toxic granulation and vacuolation. This is consistent with infection most likely atypical infection. I discussed the case with infectious diseases specialist. Maybe we need to add doxycycline or tetracycline to cover atypical infection. 4. We will follow-up with this patient closely. 5. No need for bone marrow biopsy or biopsy of the lymph node at this time. If the symptoms did not resolve with antibiotic treatment then maybe biopsy of the lymph node is indicated Vitals/Labs Vital Signs Date Time Temp Pulse Resp B/P (MAP) Pulse Ox O2 Delivery O2 Flow Rate FiO2 03/18/24 08:00 99.0 96 18 122/84 98 Room Air 03/17/24 20:00 0 21 Laboratory Tests 03/18/24 04:49 Medications Current Medications Sodium Chloride 1,000 ml @ 0 mls/hr ONCE ONCE IV Last administered on 03/14/24at 19:53; Start 03/14/24 at 18:00; Stop 03/14/24 at 18:01; Status DC Ondansetron HCl 4 mg ONCE ONCE IVP Last administered on 03/14/24at 19:53; Start 03/14/24 at 18:00; Stop 03/14/24 at 18:01; Status DC Acetaminophen 1,000 mg ONCE ONCE PO Last administered on 03/14/24at 19:03; Start 03/14/24 at 18:00; Stop 03/14/24 at 18:01; Status DC Ceftriaxone Sodium 2 gm ONCE ONCE IVPB Last administered on 03/14/24at 19:53; Start 03/14/24 at 18:00; Stop 03/14/24 at 18:01; Status DC Potassium Bicarbonate 50 meq ONCE ONCE PO Last administered on 03/14/24at 21:30; Start 03/14/24 at 20:30; Stop 03/14/24 at 20:34; Status DC Ceftriaxone Sodium 2 gm Q24H IVPB; Start 03/15/24 at 20:00; Stop 03/15/24 at 02:58; Status DC Sodium Chloride 1,000 ml @ 125 mls/hr Q8H IV Last administered on 03/18/24at 06:05; Start 03/14/24 at 22:30; Stop 04/13/24 at 22:29 Enoxaparin Sodium 30 mg DAILY SQ Last administered on 03/18/24at 08:06; Start 03/15/24 at 09:00; Stop 04/14/24 at 08:59 Acetaminophen 650 mg Q6H PRN PO Last administered on 03/18/24at 08:05; Start 03/15/24 at 03:00; Stop 04/14/24 at 02:59 Acetaminophen 650 mg Q6H PRN RC; Start 03/15/24 at 03:00; Stop 04/14/24 at 02:59 Lactulose 20 gm Q6H PRN PO; Start 03/15/24 at 03:00; Stop 04/14/24 at 02:59 Docusate Sodium 100 mg BID PRN PO; Start 03/15/24 at 03:00; Stop 04/14/24 at 02:59 Temazepam 15 mg HS PRN PO; Start 03/15/24 at 03:00; Stop 04/14/24 at 02:59 Ondansetron HCl 4 mg Q6H PRN IVP Last administered on 03/18/24at 06:12; Start 03/15/24 at 03:00; Stop 04/14/24 at 02:59 Hydralazine HCl 10 mg Q2H PRN IV; Start 03/15/24 at 03:00; Stop 04/14/24 at 02:59 Ceftriaxone Sodium 2 gm Q24H IVPB Last administered on 03/18/24at 05:20; Start 03/15/24 at 06:00; Stop 03/25/24 at 05:59 Dextrose 50 ml AD PRN IV; Start 03/15/24 at 03:00; Stop 04/14/24 at 02:59 Glucagon 1 mg AD PRN IM; Start 03/15/24 at 03:00; Stop 04/14/24 at 02:59 Magnesium Sulfate 50 ml @ 0 mls/hr PROTOCOL PRN IV Last administered on 03/16/24at 09:17; Start 03/15/24 at 03:00; Stop 04/14/24 at 02:59 Potassium Chloride 100 ml @ 100 mls/hr AD PRN IV; Start 03/15/24 at 03:00; Stop 04/14/24 at 02:59 Potassium Chloride 20 meq AD PRN PO; Start 03/15/24 at 03:00; Stop 04/14/24 at 02:59 Potassium Chloride 20 meq AD PRN PO Last administered on 03/18/24at 08:06; Start 03/15/24 at 03:00; Stop 04/14/24 at 02:59 Pantoprazole Sodium 40 mg DAILY PO Last administered on 03/18/24at 08:05; Start 03/15/24 at 09:00; Stop 04/14/24 at 08:59 Ketorolac Tromethamine 15 mg Q6H PRN IV Last administered on 03/17/24at 08:23; Start 03/15/24 at 10:30; Stop 03/20/24 at 10:29 Doxycycline Hyclate 100 mg BID PO Last administered on 03/18/24at 08:05; Start 03/15/24 at 21:00; Stop 03/25/24 at 20:59 Ibuprofen 600 mg Q4H PRN PO Last administered on 03/17/24at 14:41; Start 03/15/24 at 16:00; Stop 04/14/24 at 15:59 Guaifenesin/ Dextromethorphan 10 ml Q4H PRN PO Last administered on 03/18/24at 08:05; Start 03/16/24 at 18:30; Stop 04/15/24 at 18:29 Benzonatate 200 mg Q8H PRN PO Last administered on 03/18/24at 08:05; Start 03/17/24 at 13:30; Stop 04/16/24 at 13:29 CELSA CLAY MD Mar 18, 2024 09:05
[2024-03-18] MEDS: doCUSate SODIUM 100 MG CAP PO PRN (10:32)
[2024-03-18] MEDS: LACTULOSE 20 GM/30 ML UDCUP PO PRN (10:32)
--- NOTE | 2024-03-18 11:39 | PN ---
[facility] PROGRESS NOTE Date of Service: Mar 18, 2024 Time of Service: 11:37 SUBJECTIVE: [ Ms. Perez is a 38-year-old female with a history of anemia who presented [facility] [place] emergency department for evaluation of fever, nausea, chills, headache, left flank pain onset Wednesday. Patient denies any abdominal pain, vomiting, sore throat, cough, ear pain. Flu and COVID swabs were negative. Chest x-ray: 1. No acute pulmonary infiltrate is seen. Ultrasound soft tissue neck: 1. Left cervical adenopathy with the largest lymph node measuring 4.2 x 1.6 cm. EKG: Sinus tachycardia. UA positive for leuk EST, ketones, protein, urobilinogen. ED provider request patient be admitted under the [facility] team with the diagnosis of pyelonephritis, sepsis, hypokalemia, hyponatremia, dehydration, fever, lymphadenopathy. 03/15 patient was seen by nurse practitioner and physician during rounding in room 305. Patient's COVID influenza a and influenza B continues to be negative. Soft tissue ultrasound showed left cervical adenopathy with the largest lymph node measuring 4.2 x 1.6 cm. At this moment we will order CT chest without the contrast and it is negative. We also consulted ID since patient has been having leukocytosis since Wednesday. Patient's potassium and magnesium will be replaced with 40 mEq of potassium and 2 g of magnesium. Patient denies any HIV, aids , immunosuppressive disease or any cancer history. Oncologist/[employer]person [employer] was also consulted by ID. In the meantime we will continue to monitor patient.am labs 03/16 patient was seen by nurse practitioner and physician during rounding in room 305. Patient was evaluated by oncologist and is recommending to place patient on folic acid 1 mg p.o. daily, vitamin B12 1000 mg daily no bone marrow at this moment. He will recommend antibiotics 1st per ID and the patient will not respond to antibiotics then he will step in and help with the further care. Patient is on and off with the fevers. Patient denies any shortness of breath, chest pain, nausea, vomiting. We will continue to monitor patient. A.m. labs. Replace electrolytes per protocol.] 03/17 patient is having persistent fever T-max 100.9 overnight. Patient was no gemma with possible atypical infection was started with doxycycline. We will continue to monitor closely and repeat labs tomorrow. 03/18 patient was evaluated in the room this morning. She continued with low- grade fever at 99.9 T-max. Patient also complains of continuous headache. She is being treated for rickettsial infection continue with doxycycline IV and Rocephin IV. REVIEW OF SYSTEMS 12-point ROS reviewed with patient. All pertinent positives mentioned above. Otherwise negative, non-pertinent, or noncontributory. PHYSICAL EXAM GENERAL APPEARANCE: The patient is awake, alert, and oriented, in no acute cardiopulmonary distress. NEUROLOGICAL: Cranial nerves II-XII grossly intact. Motor is 5/5 in bilateral upper and lower extremities proximal to distal. No sensory deficits. HEENT: Face is symmetric. Pupils are equal and reactive. Extraocular movements are intact. NECK: Supple. No JVD. No thyromegaly. No submental, submandibular, pre- /postauricular, occipital or supraclavicular lymphadenopathy. CHEST: Normal chest expansion. No Telemetry. LUNGS: Absence of any rales, rhonchi or any wheezing. CARDIOVASCULAR: Regular. S1 and S2 normal. No appreciable rubs, murmurs or gallops. ABDOMEN: Soft, nontender, and nondistended. There is no rebound, voluntary guarding, or rigidity. : Deferred. No Maurice. EXTREMITIES: Non-edematous and not cyanotic. No clubbing. Good capillary refill. SKIN: No skin breakdown. Vital Signs (last 8hr) Date Time Temp Pulse Resp B/P (MAP) Pulse Ox O2 Delivery O2 Flow Rate FiO2 03/18/24 08:00 99.0 96 18 122/84 98 Room Air 03/18/24 04:00 98.4 62 17 125/74 98 Room Air LABS: Laboratory: Test 03/18/24 04:49 03/17/24 03:50 Range/Units White Blood Count 6.1 4.8-10.8 K/uL Red Blood Count 3.75 L 4.00-5.50 MIL/uL Hemoglobin 11.1 L 12.0-16.0 g/dL Hematocrit 33.6 L 36-48 % Mean Corpuscular Volume 89.6 79-99 fL Mean Corpuscular Hemoglobin 29.6 27.0-33.0 pg Mean Corpuscular Hemoglobin Concent 33.0 32.0-36.0 g/dL Red Cell Distribution Width 13.0 11.0-15.5 % Platelet Count 145 130-400 K/uL Mean Platelet Volume 9.5 7.5-10.5 fL Nucleated Red Blood Cells 0.0 0.0-0.19 % Sodium Level 136 136-145 mmol/L Potassium Level 3.3 L 3.5-5.1 mmol/L Chloride Level 102 101-111 mmol/L Carbon Dioxide Level 27 21-32 mmol/L Blood Urea Nitrogen 4 L 7-18 mg/dL Creatinine 0.5 0.5-1.0 mg/dL Glomerular Filtration Rate Calc 124 >90 mL/min Random Glucose 107 H 70-105 mg/dL Total Calcium 8.2 L 8.5-10.1 mg/dL Total Bilirubin 0.8 0.2-1.0 mg/dL Direct Bilirubin 0.5 H 0.0-0.3 mg/dL Aspartate Amino Transf (AST/SGOT) 408 H 10-37 U/L Alanine Aminotransferase (ALT/SGPT) 493 H 12-78 U/L Alkaline Phosphatase 227 H 50-136 U/L Total Protein 6.1 6.0-8.3 g/dL Albumin 2.4 L 3.5-5.0 g/dL Immature Granulocyte % (Auto) 0.4 0-1 % Neutrophils (%) (Auto) 71.2 40.0-77.0 % Lymphocytes (%) (Auto) 23.0 21.0-51.0 % Monocytes (%) (Auto) 4.6 3.0-13.0 % Eosinophils (%) (Auto) 0.2 0.0-8.0 % Basophils (%) (Auto) 0.6 0.0-5.0 % Neutrophils # (Auto) 3.4 1.8-7.7 K/uL Lymphocytes # (Auto) 1.1 1.0-4.8 K/uL Monocytes # (Auto) 0.2 0.1-1.0 K/uL Eosinophils # (Auto) 0.01 0.00-0.70 K/uL Basophils # (Auto) 0.03 0.00-0.20 K/uL Absolute Immature Granulocyte (auto 0.02 0-1 K/uL Magnesium Level 1.80 1.80-2.40 mg/dL Current Medications Medications (Trade) Dose Ordered Sig/Shira Route PRN Reason Start Time Stop Time Status Last Admin Dose Admin Acetaminophen (TYLenol 325MG TAB) 650 mg Q6H PRN PO FEVER/MILD PAIN LEVEL 1-3 03/15/24 03:00 04/14/24 02:59 03/18/24 08:05 650 MG Acetaminophen (TYLenol 650MG SUPPOSITORY) 650 mg Q6H PRN RC FEVER / MILD PAIN 1-3 IF NPO 03/15/24 03:00 04/14/24 02:59 Benzonatate (Tessalon 100mg Caps) 200 mg Q8H PRN PO COUGH/COLD SYMPTOMS 03/17/24 13:30 04/16/24 13:29 03/18/24 08:05 200 MG Ceftriaxone Sodium (Rocephin 2gm Inj) 2 gm Q24H IVPB 03/15/24 06:00 03/25/24 05:59 03/18/24 05:20 2 GM Ceftriaxone Sodium (Rocephin 2gm Inj) 2 gm Q24H IVPB 03/15/24 20:00 03/15/24 02:58 DC Dextrose (D50w) 50 ml AD PRN IV HYPOGLYCEMIA PROTOCOL 03/15/24 03:00 04/14/24 02:59 Docusate Sodium (COLace 100MG CAP) 100 mg BID PRN PO c 03/15/24 03:00 04/14/24 02:59 03/18/24 10:32 100 MG Doxycycline Hyclate (Doxycycline Hyclate) 100 mg BID PO 03/15/24 21:00 03/25/24 20:59 03/18/24 08:05 100 MG Enoxaparin Sodium (Lovenox) 30 mg DAILY SQ 03/15/24 09:00 04/14/24 08:59 03/18/24 08:06 30 MG Glucagon (Glucagon 1mg Kit) 1 mg AD PRN IM HYPOGLYCEMIA PROTOCOL 03/15/24 03:00 04/14/24 02:59 Guaifenesin/ Dextromethorphan (RobiTUSSin DM 200/20MG 10ML) 10 ml Q4H PRN PO COUGH 03/16/24 18:30 04/15/24 18:29 03/18/24 08:05 10 ML Hydralazine HCl (APRESOLine 20MG INJ) 10 mg Q2H PRN IV SBP GREATER THAN 160 03/15/24 03:00 04/14/24 02:59 Ibuprofen (moTRIN) 600 mg Q4H PRN PO TEMPERATURE GREATER THAN 101.5 03/15/24 16:00 04/14/24 15:59 03/17/24 14:41 600 MG Ketorolac Tromethamine (toRADol) 15 mg Q6H PRN IV MODERATE PAIN (4-6) 03/15/24 10:30 03/20/24 10:29 03/17/24 08:23 15 MG Lactulose (Constulose 20gm/ 30ml Udcup) 20 gm Q6H PRN PO CONSTIPATION 03/15/24 03:00 04/14/24 02:59 03/18/24 10:32 20 GM Magnesium Sulfate 50 ml @ 0 mls/hr PROTOCOL PRN IV MAGNESIUM PROTOCOL 03/15/24 03:00 04/14/24 02:59 03/16/24 09:17 25 MLS/HR Ondansetron HCl (zoFRAN 4MG INJ) 4 mg Q6H PRN IVP NAUSEA/VOMITING 03/15/24 03:00 04/14/24 02:59 03/18/24 06:12 4 MG Pantoprazole Sodium (PROTonix 40MG TAB) 40 mg DAILY PO 03/15/24 09:00 04/14/24 08:59 03/18/24 08:05 40 MG Potassium Chloride 100 ml @ 100 mls/hr AD PRN IV POTASSIUM PROTOCOL 03/15/24 03:00 04/14/24 02:59 Potassium Chloride (K-Dur/Klor-Con 20meq) 20 meq AD PRN PO POTASSIUM PROTOCOL 03/15/24 03:00 04/14/24 02:59 03/18/24 08:06 20 MEQ Potassium Chloride (KCl 10% Elixir 20meq/15ml) 20 meq AD PRN PO POTASSIUM PROTOCOL 03/15/24 03:00 04/14/24 02:59 Sodium Chloride 1,000 ml @ 125 mls/hr Q8H IV 03/14/24 22:30 04/13/24 22:29 03/18/24 06:05 125 MLS/HR Temazepam (restORIL 15 MG CAP) 15 mg HS PRN PO INSOMNIA/SLEEP 03/15/24 03:00 04/14/24 02:59 DIAGNOSTICS / RADIOLOGY: [ ] ASSESSMENT: Suspected rickettsial infection, POA Pyelonephritis, POA Acute complicated cystitis, POA Left cervical adenopathy with the largest lymph node measuring 4.2 x 1.6 cm, POA Electrolyte derangement (hyponatremia, hypokalemia, hypochloremia Dehydration Persistent headache Chronic problem list: anemia PLAN: Admit patient to medical floor. Continue antibiotic therapy: Rocephin2 g IV daily and doxycycline 100 mg p.o. b.i.d. Continue with IV hydration: NS at 125 mL an hour. P.r.n. medications for: Pain management, fever, nausea, vomiting, constipation, hypertension. Monitor renal and liver function. Monitor electrolytes and treat accordingly. DVT and GI prophylaxis. A.m. labs Further orders per hospitalization course. CT chest without contrast negative unremarkable results Consulted Infectious Disease, we will continue to follow their recommendation We will follow recommendations from salesperson handbags oncologist. This patient was seen and examined with Dr. Prado, above plan was formulated ATTESTATION BY PHYSICIAN I have seen and examined the patient. I reviewed the documentation, medical decision making, and treatment plan as noted by the mid-level provider above. I agree with the findings and plan of care. Sayra Prado MD, [facility] Mar 18, 2024 11:39
[2024-03-18] MEDS ORDERED: MAGNESIUM 2GM PREMIX 50ML 50 ML IV PRN (12:00)
[2024-03-18] MEDS ORDERED: PoTASSium chloRIDE 20MEQ ER 20 MEQ ERTAB PO PRN (12:00)
[2024-03-18] MEDS ORDERED: PoTASSium chl 10% ELIXIR 20MEQ 20 MEQ/15 ML UDCUP PO PRN (12:00)
[2024-03-18] MEDS ORDERED: PoTASSium chloRIDE 20MEQ/100ML 100 ML IV PRN (12:00)
--- NOTE | 2024-03-18 16:14 | PN ---
INFECTIOUS DISEASE PROGRESS NOTE Date of Service: Mar 18, 2024 SUBJECTIVE: This is a 38-year-old female patient who was admitted to the emergency room for evaluation of fever, nausea, chills and left flank pain. On admission patient had a fever of 102.6. Patient was seen and examined at bedside in room 305. Patient is awake, alert and oriented x3. Last Low-grade fever of 99.9 was reported yesterday at 4:00 p.m.. No fever this morning, temperature 99.0. Some improvement on the Liver enzymes levels, AST is for 408 and ALT is 461. Still no growth reported on the blood cultures and urine cultures. Patient continues on doxycycline p.o. and ceftriaxone IV. We will continue to monitor patient's care. PHYSICAL EXAM EYES: Anicteric. Pupils equal and reactive. HENT: No oral thrush seen, moist Oral mucosa. NECK: Supple, no JVD or thyromegaly. LUNGS: Good air entry. No rales, no rhonchi. Cough. CARDIOVASCULAR: S1, S2 regular. No murmur heard. ABDOMEN: Soft, non tender, bowel sounds present, no organomegaly. CENTRAL NERVOUS SYSTEM: Awake, alert, oriented x 3. SKIN: No rashes, no swelling. LYMPHATICS: No peripheral lymphadenopathy. MUSCULOSKELETAL: No joint swelling, erythema or tenderness. EXTREMITIES: No cyanosis or clubbing BACK: No deformity, no pressure ulcer. GENITOURINARY: No dysuria or hematuria.. Vital Sign (Last 12 Hours) 03/18/24 03/18/24 08:00 12:00 Temp 99.0 98.8 Pulse 96 85 Resp 18 18 B/P (MAP) 122/84 132/81 Pulse Ox 98 99 O2 Delivery Room Air Room Air Intake & Output (last 24hrs) 03/17/24 03/17/24 03/18/24 15:00 23:00 07:00 Intake Total 220 ml 240 ml Balance 220 ml 240 ml LABS: Laboratory: Test 03/18/24 04:49 03/17/24 03:50 Range/Units White Blood Count 6.1 4.8-10.8 K/uL Red Blood Count 3.75 L 4.00-5.50 MIL/uL Hemoglobin 11.1 L 12.0-16.0 g/dL Hematocrit 33.6 L 36-48 % Mean Corpuscular Volume 89.6 79-99 fL Mean Corpuscular Hemoglobin 29.6 27.0-33.0 pg Mean Corpuscular Hemoglobin Concent 33.0 32.0-36.0 g/dL Red Cell Distribution Width 13.0 11.0-15.5 % Platelet Count 145 130-400 K/uL Mean Platelet Volume 9.5 7.5-10.5 fL Nucleated Red Blood Cells 0.0 0.0-0.19 % Sodium Level 136 136-145 mmol/L Potassium Level 3.3 L 3.5-5.1 mmol/L Chloride Level 102 101-111 mmol/L Carbon Dioxide Level 27 21-32 mmol/L Blood Urea Nitrogen 4 L 7-18 mg/dL Creatinine 0.5 0.5-1.0 mg/dL Glomerular Filtration Rate Calc 124 >90 mL/min Random Glucose 107 H 70-105 mg/dL Total Calcium 8.2 L 8.5-10.1 mg/dL Total Bilirubin 0.8 0.2-1.0 mg/dL Direct Bilirubin 0.5 H 0.0-0.3 mg/dL Aspartate Amino Transf (AST/SGOT) 408 H 10-37 U/L Alanine Aminotransferase (ALT/SGPT) 493 H 12-78 U/L Alkaline Phosphatase 227 H 50-136 U/L Total Protein 6.1 6.0-8.3 g/dL Albumin 2.4 L 3.5-5.0 g/dL Immature Granulocyte % (Auto) 0.4 0-1 % Neutrophils (%) (Auto) 71.2 40.0-77.0 % Lymphocytes (%) (Auto) 23.0 21.0-51.0 % Monocytes (%) (Auto) 4.6 3.0-13.0 % Eosinophils (%) (Auto) 0.2 0.0-8.0 % Basophils (%) (Auto) 0.6 0.0-5.0 % Neutrophils # (Auto) 3.4 1.8-7.7 K/uL Lymphocytes # (Auto) 1.1 1.0-4.8 K/uL Monocytes # (Auto) 0.2 0.1-1.0 K/uL Eosinophils # (Auto) 0.01 0.00-0.70 K/uL Basophils # (Auto) 0.03 0.00-0.20 K/uL Absolute Immature Granulocyte (auto 0.02 0-1 K/uL Magnesium Level 1.80 1.80-2.40 mg/dL ASSESSMENT: Possible rickettsial infection. Elevated liver enzymes. Leukopenia. Left cervical adenopathy per neck ultrasound. Obesity. PLAN: Continue ceftriaxone IV. Continue doxycycline p.o.. Continue GI prophylaxis. Continue pain management. Continue Tessalon Perles as needed for cough. We will follow up on the cultures. We will monitor liver enzymes. This case was reviewed and discussed with my supervising physician and the above assessment and plan was formulated and agreed upon. ATTESTATION BY PHYSICIAN I have seen and examined the patient. I reviewed the documentation, medical decision making, and treatment plan as noted by the mid-level provider above. I agree with the findings and plan of care. JAVON ELKINS MD, [facility] Mar 18, 2024 16:13
[2024-03-18] MEDS: guaiFENesin-coDEINE 5 ML SYRUP PO PRN (18:44)
[2024-03-19] VITALS (8 sets, daily range): BP systolic 110–131; BP diastolic 62–79; PULSE 80–96; RESP 16–18; TEMP 98.1–98.9; O2SAT 96–97
[2024-03-19 06:04] LABS: HEMATOCRIT 32.2 % (36-48); MEAN CORPUSCULAR HEMOGLOBIN 29.4 pg (27.0-33.0); MEAN CORPUSCULAR HGB CONC 32.9 g/dL (32.0-36.0); MEAN CORPUSCULAR VOLUME 89.4 fL (79-99); RED BLOOD CELL COUNT(AUTO) 3.6 MIL/uL (4.00-5.50); RED CELL DISTRIBUTION WIDTH 13.2 % (11.0-15.5); WHITE BLOOD COUNT (AUTO) 6.7 K/uL (4.8-10.8)
[2024-03-19 06:28] LABS: ALBUMIN 2.5 g/dL (3.5-5.0); BILIRUBIN,DIRECT 0.3 mg/dL (0.0-0.3); BILIRUBIN,TOTAL 0.6 mg/dL (0.2-1.0); CREATININE 0.5 mg/dL (0.5-1.0); MAGNESIUM 1.6 mg/dL (1.80-2.40); POTASSIUM 3.6 mmol/L (3.5-5.1)
--- NOTE | 2024-03-19 08:43 | PN ---
[facility] PROGRESS NOTE Date of Service: Mar 19, 2024 Time of Service: 08:41 SUBJECTIVE: [ Ms. Perez is a 38-year-old female with a history of anemia who presented [facility] emergency department for evaluation of fever, nausea, chills, headache, left flank pain onset Wednesday. Patient denies any abdominal pain, vomiting, sore throat, cough, ear pain. Flu and COVID swabs were negative. Chest x-ray: 1. No acute pulmonary infiltrate is seen. Ultrasound soft tissue neck: 1. Left cervical adenopathy with the largest lymph node measuring 4.2 x 1.6 cm. EKG: Sinus tachycardia. UA positive for leuk EST, ketones, protein, urobilinogen. ED provider request patient be admitted under the [facility] team with the diagnosis of pyelonephritis, sepsis, hypokalemia, hyponatremia, dehydration, fever, lymphadenopathy. 03/15 patient was seen by nurse practitioner and physician during rounding in room 305. Patient's COVID influenza a and influenza B continues to be negative. Soft tissue ultrasound showed left cervical adenopathy with the largest lymph node measuring 4.2 x 1.6 cm. At this moment we will order CT chest without the contrast and it is negative. We also consulted ID since patient has been having leukocytosis since Wednesday. Patient's potassium and magnesium will be replaced with 40 mEq of potassium and 2 g of magnesium. Patient denies any HIV, aids , immunosuppressive disease or any cancer history. Oncologist/agriculturist was also consulted by ID. In the meantime we will continue to monitor patient.am labs 03/16 patient was seen by nurse practitioner and physician during rounding in room 305. Patient was evaluated by oncologist and is recommending to place patient on folic acid 1 mg p.o. daily, vitamin B12 1000 mg daily no bone marrow at this moment. He will recommend antibiotics 1st per ID and the patient will not respond to antibiotics then he will step in and help with the further care. Patient is on and off with the fevers. Patient denies any shortness of breath, chest pain, nausea, vomiting. We will continue to monitor patient. A.m. labs. Replace electrolytes per protocol. 03/17 patient is having persistent fever T-max 100.9 overnight. Patient was noted with possible atypical infection was started with doxycycline. We will continue to monitor closely and repeat labs tomorrow. 03/18 patient was evaluated in the room this morning. She continued with low- grade fever at 99.9 T-max. Patient also complains of continuous headache. She is being treated for rickettsial infection continue with doxycycline IV and Rocephin IV. 03/19 Today on bedside evaluation patient was found awake alert and oriented x 3. The power chart reviewed, vital signs, laboratory tests, imaging test and medications have been reviewed. Her vitals are stable, afebrile, satting 97% on room air. CBC is stable, LFTs are downtrending but still elevated. Urine cultures growing mixed myrna contamination. ID recommended to continue IV Roce phin and p.o. doxycycline. Patient not ready to be discharged. We will continue to monitor closely. Condition is guarded. REVIEW OF SYSTEMS 12-point ROS reviewed with patient. All pertinent positives mentioned above. Otherwise negative, non-pertinent, or noncontributory. PHYSICAL EXAM GENERAL APPEARANCE: The patient is awake, alert, and oriented, in no acute cardiopulmonary distress. NEUROLOGICAL: Cranial nerves II-XII grossly intact. Motor is 5/5 in bilateral upper and lower extremities proximal to distal. No sensory deficits. HEENT: Face is symmetric. Pupils are equal and reactive. Extraocular movements are intact. NECK: Supple. No JVD. No thyromegaly. No submental, submandibular, pre- /postauricular, occipital or supraclavicular lymphadenopathy. CHEST: Normal chest expansion. No Telemetry. LUNGS: Absence of any rales, rhonchi or any wheezing. CARDIOVASCULAR: Regular. S1 and S2 normal. No appreciable rubs, murmurs or gallops. ABDOMEN: Soft, nontender, and nondistended. There is no rebound, voluntary guarding, or rigidity. : Deferred. No Maurice. EXTREMITIES: Non-edematous and not cyanotic. No clubbing. Good capillary refill. SKIN: No skin breakdown. Vital Signs (last 8hr) Date Time Temp Pulse Resp B/P (MAP) Pulse Ox O2 Delivery O2 Flow Rate FiO2 03/19/24 04:42 98.4 84 17 120/76 97 Room Air LABS: Laboratory: Test 03/19/24 05:34 Range/Units White Blood Count 6.7 4.8-10.8 K/uL Red Blood Count 3.60 L 4.00-5.50 MIL/uL Hemoglobin 10.6 L 12.0-16.0 g/dL Hematocrit 32.2 L 36-48 % Mean Corpuscular Volume 89.4 79-99 fL Mean Corpuscular Hemoglobin 29.4 27.0-33.0 pg Mean Corpuscular Hemoglobin Concent 32.9 32.0-36.0 g/dL Red Cell Distribution Width 13.2 11.0-15.5 % Platelet Count 209 # 130-400 K/uL Mean Platelet Volume 9.5 7.5-10.5 fL Nucleated Red Blood Cells 0.0 0.0-0.19 % Sodium Level 138 136-145 mmol/L Potassium Level 3.6 3.5-5.1 mmol/L Chloride Level 104 101-111 mmol/L Carbon Dioxide Level 26 21-32 mmol/L Blood Urea Nitrogen 3 L 7-18 mg/dL Creatinine 0.5 0.5-1.0 mg/dL Glomerular Filtration Rate Calc 124 >90 mL/min Random Glucose 91 70-105 mg/dL Total Calcium 8.2 L 8.5-10.1 mg/dL Magnesium Level 1.60 L 1.80-2.40 mg/dL Total Bilirubin 0.6 0.2-1.0 mg/dL Direct Bilirubin 0.3 0.0-0.3 mg/dL Aspartate Amino Transf (AST/SGOT) 330 H 10-37 U/L Alanine Aminotransferase (ALT/SGPT) 481 H 12-78 U/L Alkaline Phosphatase 234 H 50-136 U/L Total Protein 6.0 6.0-8.3 g/dL Albumin 2.5 L 3.5-5.0 g/dL Current Medications Medications (Trade) Dose Ordered Sig/Shira Route PRN Reason Start Time Stop Time Status Last Admin Dose Admin Acetaminophen (TYLenol 325MG TAB) 650 mg Q6H PRN PO FEVER/MILD PAIN LEVEL 1-3 03/15/24 03:00 04/14/24 02:59 03/18/24 20:14 650 MG Acetaminophen (TYLenol 650MG SUPPOSITORY) 650 mg Q6H PRN RC FEVER / MILD PAIN 1-3 IF NPO 03/15/24 03:00 04/14/24 02:59 Benzonatate (Tessalon 100mg Caps) 200 mg Q8H PRN PO COUGH/COLD SYMPTOMS 03/17/24 13:30 04/16/24 13:29 03/18/24 16:46 200 MG Ceftriaxone Sodium (Rocephin 2gm Inj) 2 gm Q24H IVPB 03/15/24 06:00 03/25/24 05:59 03/19/24 05:53 2 GM Ceftriaxone Sodium (Rocephin 2gm Inj) 2 gm Q24H IVPB 03/15/24 20:00 03/15/24 02:58 DC Dextrose (D50w) 50 ml AD PRN IV HYPOGLYCEMIA PROTOCOL 03/15/24 03:00 04/14/24 02:59 Docusate Sodium (COLace 100MG CAP) 100 mg BID PRN PO c 03/15/24 03:00 04/14/24 02:59 03/18/24 10:32 100 MG Doxycycline Hyclate (Doxycycline Hyclate) 100 mg BID PO 03/15/24 21:00 03/25/24 20:59 03/19/24 08:05 100 MG Enoxaparin Sodium (Lovenox) 30 mg DAILY SQ 03/15/24 09:00 04/14/24 08:59 03/19/24 08:06 30 MG Glucagon (Glucagon 1mg Kit) 1 mg AD PRN IM HYPOGLYCEMIA PROTOCOL 03/15/24 03:00 04/14/24 02:59 Guaifenesin/ Codeine Phosphate (RobiTUSSin AC 5 ML SYRUP) 5 ml Q4H PRN PO COUGH 03/18/24 18:30 04/17/24 18:29 03/19/24 08:05 5 ML Guaifenesin/ Dextromethorphan (RobiTUSSin DM 200/20MG 10ML) 10 ml Q4H PRN PO COUGH 03/16/24 18:30 03/18/24 18:25 DC 03/18/24 13:24 10 ML Hydralazine HCl (APRESOLine 20MG INJ) 10 mg Q2H PRN IV SBP GREATER THAN 160 03/15/24 03:00 04/14/24 02:59 Ibuprofen (moTRIN) 600 mg Q4H PRN PO TEMPERATURE GREATER THAN 101.5 03/15/24 16:00 04/14/24 15:59 03/17/24 14:41 600 MG Ketorolac Tromethamine (toRADol) 15 mg Q6H PRN IV MODERATE PAIN (4-6) 03/15/24 10:30 03/20/24 10:29 03/19/24 08:05 15 MG Lactulose (Constulose 20gm/ 30ml Udcup) 20 gm Q6H PRN PO CONSTIPATION 03/15/24 03:00 04/14/24 02:59 03/18/24 10:32 20 GM Magnesium Sulfate 50 ml @ 0 mls/hr PROTOCOL PRN IV MAGNESIUM PROTOCOL 03/15/24 03:00 04/14/24 02:59 03/16/24 09:17 25 MLS/HR Magnesium Sulfate 50 ml @ 0 mls/hr PROTOCOL PRN IV MAGNESIUM PROTOCOL 03/18/24 12:00 03/18/24 11:38 DC Ondansetron HCl (zoFRAN 4MG INJ) 4 mg Q6H PRN IVP NAUSEA/VOMITING 03/15/24 03:00 04/14/24 02:59 03/18/24 06:12 4 MG Pantoprazole Sodium (PROTonix 40MG TAB) 40 mg DAILY PO 03/15/24 09:00 04/14/24 08:59 03/19/24 08:05 40 MG Potassium Chloride 100 ml @ 100 mls/hr AD PRN IV POTASSIUM PROTOCOL 03/15/24 03:00 04/14/24 02:59 Potassium Chloride 100 ml @ 100 mls/hr AD PRN IV POTASSIUM PROTOCOL 03/18/24 12:00 03/18/24 11:37 DC Potassium Chloride (K-Dur/Klor-Con 20meq) 20 meq AD PRN PO POTASSIUM PROTOCOL 03/15/24 03:00 04/14/24 02:59 03/19/24 08:08 20 MEQ Potassium Chloride (K-Dur/Klor-Con 20meq) 20 meq AD PRN PO POTASSIUM PROTOCOL 03/18/24 12:00 03/18/24 11:37 DC Potassium Chloride (KCl 10% Elixir 20meq/15ml) 20 meq AD PRN PO POTASSIUM PROTOCOL 03/15/24 03:00 04/14/24 02:59 Potassium Chloride (KCl 10% Elixir 20meq/15ml) 20 meq AD PRN PO POTASSIUM PROTOCOL 03/18/24 12:00 03/18/24 11:37 DC Sodium Chloride 1,000 ml @ 125 mls/hr Q8H IV 03/14/24 22:30 04/13/24 22:29 03/19/24 05:53 125 MLS/HR Temazepam (restORIL 15 MG CAP) 15 mg HS PRN PO INSOMNIA/SLEEP 03/15/24 03:00 04/14/24 02:59 DIAGNOSTICS / RADIOLOGY: [ ] ASSESSMENT: Suspected rickettsial infection, POA Pyelonephritis, POA Acute complicated cystitis, POA Left cervical adenopathy with the largest lymph node measuring 4.2 x 1.6 cm, POA Electrolyte derangement (hyponatremia, hypokalemia, hypochloremia Dehydration Persistent headache anemia PLAN: Continues admission in the medical floor Continue consistent carb diet Continue Rocephin2 g IV daily and doxycycline [address] Martin for antimicrobial stewardship. Blood cultures are negative Urine cultures growing mixed myrna contamination Continue with IV hydration: NS at 125 mL an hour. Monitor renal indices, LFTs Replace electrolytes per hospital protocol CT chest without contrast negative unremarkable results We will follow recommendations from agriculturist oncologist. Monitor a.m. labs PRN Treatment - Add when necessary meds for nausea, vomiting, pain, constipation, insomnia. DVT/GI prophylaxis- Continue Lovenox and Protonix at current doses. Full CODE STATUS This document was generated in part using voice recognition software, occasional wrong word or sound alike substitutions may have occurred due to the inherent limitations of voice recognition software. Read the chart carefully and recognize using context, where the substitutions have occurred. Although every effort was made to edit the content, ice skating instructor and typing errors may occur ATTESTATION BY PHYSICIAN I have seen and examined the patient. I reviewed the documentation, medical decision making, and treatment plan as noted by the mid-level provider above. I agree with the findings and plan of care. Eddie Green MD, [facility] Mar 19, 2024 08:43 EDDIE GREEN MD Mar 19, 2024 23:06
--- NOTE | 2024-03-19 12:42 | PN ---
INFECTIOUS DISEASE PROGRESS NOTE Date of Service: Mar 19, 2024 SUBJECTIVE: This is a 38-year-old female patient who was admitted to the emergency room for evaluation of fever, nausea, chills and left flank pain. On admission patient had a fever of 102.6. Patient was seen and examined at bedside in room 305. Patient is sitting up on the edge of the bed in no distress. No fever reported throughout the night and patient stated she is feeling much better besides having pain in her knees. Stated that the headache has improved with the tramadol. Liver enzymes trending down. Continues on doxycycline p.o. and ceftriaxone IV. We will continue to monitor patient's care. PHYSICAL EXAM EYES: Anicteric. Pupils equal and reactive. HENT: No oral thrush seen, moist Oral mucosa. NECK: Supple, no JVD or thyromegaly. LUNGS: Good air entry. No rales, no rhonchi. Cough. CARDIOVASCULAR: S1, S2 regular. No murmur heard. ABDOMEN: Soft, non tender, bowel sounds present, no organomegaly. CENTRAL NERVOUS SYSTEM: Awake, alert, oriented x 3. SKIN: No rashes, no swelling. LYMPHATICS: No peripheral lymphadenopathy. MUSCULOSKELETAL: No joint swelling, erythema or tenderness. EXTREMITIES: No cyanosis or clubbing BACK: No deformity, no pressure ulcer. GENITOURINARY: No dysuria or hematuria.. Vital Sign (Last 12 Hours) 03/19/24 04:42 Temp 98.4 Pulse 84 Resp 17 B/P (MAP) 120/76 Pulse Ox 97 O2 Delivery Room Air Intake & Output (last 24hrs) 03/18/24 03/18/24 03/19/24 15:00 23:00 07:00 Intake Total 1800 ml 120 ml Balance 1800 ml 120 ml LABS: Laboratory: Test 03/19/24 05:34 Range/Units White Blood Count 6.7 4.8-10.8 K/uL Red Blood Count 3.60 L 4.00-5.50 MIL/uL Hemoglobin 10.6 L 12.0-16.0 g/dL Hematocrit 32.2 L 36-48 % Mean Corpuscular Volume 89.4 79-99 fL Mean Corpuscular Hemoglobin 29.4 27.0-33.0 pg Mean Corpuscular Hemoglobin Concent 32.9 32.0-36.0 g/dL Red Cell Distribution Width 13.2 11.0-15.5 % Platelet Count 209 # 130-400 K/uL Mean Platelet Volume 9.5 7.5-10.5 fL Nucleated Red Blood Cells 0.0 0.0-0.19 % Sodium Level 138 136-145 mmol/L Potassium Level 3.6 3.5-5.1 mmol/L Chloride Level 104 101-111 mmol/L Carbon Dioxide Level 26 21-32 mmol/L Blood Urea Nitrogen 3 L 7-18 mg/dL Creatinine 0.5 0.5-1.0 mg/dL Glomerular Filtration Rate Calc 124 >90 mL/min Random Glucose 91 70-105 mg/dL Total Calcium 8.2 L 8.5-10.1 mg/dL Magnesium Level 1.60 L 1.80-2.40 mg/dL Total Bilirubin 0.6 0.2-1.0 mg/dL Direct Bilirubin 0.3 0.0-0.3 mg/dL Aspartate Amino Transf (AST/SGOT) 330 H 10-37 U/L Alanine Aminotransferase (ALT/SGPT) 481 H 12-78 U/L Alkaline Phosphatase 234 H 50-136 U/L Total Protein 6.0 6.0-8.3 g/dL Albumin 2.5 L 3.5-5.0 g/dL ASSESSMENT: Possible rickettsial infection. Elevated liver enzymes. Leukopenia. Left cervical adenopathy per neck ultrasound. Obesity. PLAN: Continue ceftriaxone IV. Continue doxycycline p.o.. Continue GI prophylaxis. Continue pain management. Continue Tessalon Perles as needed for cough. We will monitor liver enzymes. This case was reviewed and discussed with my supervising physician and the above assessment and plan was formulated and agreed upon. ATTESTATION BY PHYSICIAN I have seen and examined the patient. I reviewed the documentation, medical decision making, and treatment plan as noted by the mid-level provider above. I agree with the findings and plan of care. JAVON ELKINS MD, [facility] Mar 19, 2024 12:42
--- NOTE | 2024-03-19 21:50 | PN ---
Ms. Perez is a 38-year-old female with a history of anemia who presented [facility] emergency department for evaluation of fever, nausea, chills, headache, left flank pain onset [place]. Patient denies any abdominal pain, vomiting, sore throat, cough, ear pain. Flu and COVID swabs were negative. Chest x-ray: 1. No acute pulmonary infiltrate is seen. Ultrasound soft tissue neck: 1. Left cervical adenopathy with the largest lymph node measuring 4.2 x 1.6 cm. EKG: Sinus tachycardia. UA positive for leuk EST, ketones, protein, urobilinogen. This patient did not have any fever in the last 24 hours. Her white blood count actually is corrected. Patient with mild anemia hemoglobin level 10.6 g/deciliter. Platelet count is normal at 209K. PHYSICAL EXAM GENERAL APPEARANCE: The patient is awake, alert, and oriented, in no acute cardiopulmonary distress. NEUROLOGICAL: Cranial nerves II-XII grossly intact. Motor is 5/5 in bilateral upper and lower extremities proximal to distal. No sensory deficits. HEENT: Face is symmetric. Pupils are equal and reactive. Extraocular movements are intact. NECK: Supple. No JVD. No thyromegaly. No submental, submandibular, pre- /postauricular, occipital or supraclavicular lymphadenopathy. CHEST: Normal chest expansion. No Telemetry. LUNGS: Absence of any rales, rhonchi or any wheezing. CARDIOVASCULAR: Regular. S1 and S2 normal. No appreciable rubs, murmurs or gallops. ABDOMEN: Soft, nontender, and nondistended. There is no rebound, voluntary guarding, or rigidity. : Deferred. No Maurice. EXTREMITIES: Non-edematous and not cyanotic. No clubbing. Good capillary refill. SKIN: No skin breakdown. Assessment 1. Neutropenia. White blood count corrected at 6.1K. With the absolute neutrophil count is 71% 2. Fever chills. There was no fever in the last 24 hours 3. Left cervical adenopathy 4. Pyelonephritis 5. History of anemia but hemoglobin level is 12.3 g/deciliter Plan 1. This patient did not have any fever in the last 24 hours. Patient is stable from my point of view and she could be discharged home. 2. There was hypersegmented neutrophils. This patient to Continue on folic acid 1 mg p.o. daily and vitamin B12 1000 mcg p.o. daily. 3. There is increased number of neutrophils, bands and toxic granulation and vacuolation. This is consistent with infection most likely atypical infection. I discussed the case with infectious diseases specialist. Maybe we need to add doxycycline or tetracycline to cover atypical infection. 4. We will follow-up with this patient closely. 5. No need for bone marrow biopsy or biopsy of the lymph node at this time. If the symptoms did not resolve with antibiotic treatment then maybe biopsy of the lymph node is indicated Vitals/Labs Vital Signs Date Time Temp Pulse Resp B/P (MAP) Pulse Ox O2 Delivery O2 Flow Rate FiO2 03/19/24 20:09 99.0 89 18 122/75 96 Room Air 03/19/24 08:05 0 21 Laboratory Tests 03/19/24 05:34 Medications Current Medications Sodium Chloride 1,000 ml @ 0 mls/hr ONCE ONCE IV Last administered on 03/14/24at 19:53; Start 03/14/24 at 18:00; Stop 03/14/24 at 18:01; Status DC Ondansetron HCl 4 mg ONCE ONCE IVP Last administered on 03/14/24at 19:53; Start 03/14/24 at 18:00; Stop 03/14/24 at 18:01; Status DC Acetaminophen 1,000 mg ONCE ONCE PO Last administered on 03/14/24at 19:03; Start 03/14/24 at 18:00; Stop 03/14/24 at 18:01; Status DC Ceftriaxone Sodium 2 gm ONCE ONCE IVPB Last administered on 03/14/24at 19:53; Start 03/14/24 at 18:00; Stop 03/14/24 at 18:01; Status DC Potassium Bicarbonate 50 meq ONCE ONCE PO Last administered on 03/14/24at 21:30; Start 03/14/24 at 20:30; Stop 03/14/24 at 20:34; Status DC Ceftriaxone Sodium 2 gm Q24H IVPB; Start 03/15/24 at 20:00; Stop 03/15/24 at 02:58; Status DC Sodium Chloride 1,000 ml @ 125 mls/hr Q8H IV Last administered on 03/19/24at 14:20; Start 03/14/24 at 22:30; Stop 04/13/24 at 22:29 Enoxaparin Sodium 30 mg DAILY SQ Last administered on 03/19/24at 08:06; Start 03/15/24 at 09:00; Stop 04/14/24 at 08:59 Acetaminophen 650 mg Q6H PRN PO Last administered on 03/18/24at 20:14; Start 03/15/24 at 03:00; Stop 04/14/24 at 02:59 Acetaminophen 650 mg Q6H PRN RC; Start 03/15/24 at 03:00; Stop 04/14/24 at 02:59 Lactulose 20 gm Q6H PRN PO Last administered on 03/18/24at 10:32; Start 03/15/24 at 03:00; Stop 04/14/24 at 02:59 Docusate Sodium 100 mg BID PRN PO Last administered on 03/18/24at 10:32; Start 03/15/24 at 03:00; Stop 04/14/24 at 02:59 Temazepam 15 mg HS PRN PO; Start 03/15/24 at 03:00; Stop 04/14/24 at 02:59 Ondansetron HCl 4 mg Q6H PRN IVP Last administered on 03/18/24at 06:12; Start 03/15/24 at 03:00; Stop 04/14/24 at 02:59 Hydralazine HCl 10 mg Q2H PRN IV; Start 03/15/24 at 03:00; Stop 04/14/24 at 02:59 Ceftriaxone Sodium 2 gm Q24H IVPB Last administered on 03/19/24at 05:53; Start 03/15/24 at 06:00; Stop 03/25/24 at 05:59 Dextrose 50 ml AD PRN IV; Start 03/15/24 at 03:00; Stop 04/14/24 at 02:59 Glucagon 1 mg AD PRN IM; Start 03/15/24 at 03:00; Stop 04/14/24 at 02:59 Magnesium Sulfate 50 ml @ 0 mls/hr PROTOCOL PRN IV Last administered on 03/19/24at 11:56; Start 03/15/24 at 03:00; Stop 04/14/24 at 02:59 Potassium Chloride 100 ml @ 100 mls/hr AD PRN IV; Start 03/15/24 at 03:00; Stop 04/14/24 at 02:59 Potassium Chloride 20 meq AD PRN PO; Start 03/15/24 at 03:00; Stop 04/14/24 at 02:59 Potassium Chloride 20 meq AD PRN PO Last administered on 03/19/24at 11:55; Start 03/15/24 at 03:00; Stop 04/14/24 at 02:59 Pantoprazole Sodium 40 mg DAILY PO Last administered on 03/19/24at 08:05; Start 03/15/24 at 09:00; Stop 04/14/24 at 08:59 Ketorolac Tromethamine 15 mg Q6H PRN IV Last administered on 03/19/24at 15:44; Start 03/15/24 at 10:30; Stop 03/20/24 at 10:29 Doxycycline Hyclate 100 mg BID PO Last administered on 03/19/24at 20:09; Start 03/15/24 at 21:00; Stop 03/25/24 at 20:59 Ibuprofen 600 mg Q4H PRN PO Last administered on 03/17/24at 14:41; Start 03/15/24 at 16:00; Stop 04/14/24 at 15:59 Guaifenesin/ Dextromethorphan 10 ml Q4H PRN PO Last administered on 03/18/24at 13:24; Start 03/16/24 at 18:30; Stop 03/18/24 at 18:25; Status DC Benzonatate 200 mg Q8H PRN PO Last administered on 03/18/24at 16:46; Start 03/17/24 at 13:30; Stop 04/16/24 at 13:29 Potassium Chloride 100 ml @ 100 mls/hr AD PRN IV; Start 03/18/24 at 12:00; Stop 03/18/24 at 11:37; Status DC Potassium Chloride 20 meq AD PRN PO; Start 03/18/24 at 12:00; Stop 03/18/24 at 11:37; Status DC Potassium Chloride 20 meq AD PRN PO; Start 03/18/24 at 12:00; Stop 03/18/24 at 11:37; Status DC Magnesium Sulfate 50 ml @ 0 mls/hr PROTOCOL PRN IV; Start 03/18/24 at 12:00; Stop 03/18/24 at 11:38; Status DC Guaifenesin/ Codeine Phosphate 5 ml Q4H PRN PO Last administered on 03/19/24at 15:44; Start 03/18/24 at 18:30; Stop 04/17/24 at 18:29 CELSA CLAY MD Mar 19, 2024 21:50
[2024-03-20 04:01] VITALS: BP 137/68; PULSE 75; RESP 18; TEMP 98.4
[2024-03-20 06:43] LABS: BASOPHILS # (AUTO) 0.03 K/uL (0.00-0.20); BASOPHILS % (AUTO) 0.4 % (0.0-5.0); EOSINOPHILS # (AUTO) 0.15 K/uL (0.00-0.70); EOSINOPHILS % (AUTO) 2.2 % (0.0-8.0); IMMATURE GRANULOCYTE ABSOLUTE 0.15 K/uL (0-1); LYMPHOCYTES # (AUTO) 2.4 K/uL (1.0-4.8); LYMPHOCYTES % (AUTO) 36.3 % (21.0-51.0); MEAN CORPUSCULAR HEMOGLOBIN 29.5 pg (27.0-33.0); MEAN CORPUSCULAR HGB CONC 33.3 g/dL (32.0-36.0); MEAN CORPUSCULAR VOLUME 88.5 fL (79-99); MONOCYTES # (AUTO) 0.6 K/uL (0.1-1.0); MONOCYTES % (AUTO) 8.3 % (3.0-13.0); NEUTROPHILS # (AUTO) 3.4 K/uL (1.8-7.7); NEUTROPHILS % (AUTO) 50.6 % (40.0-77.0); PLATELET COUNT (AUTO) 248 K/uL (130-400); RED BLOOD CELL COUNT(AUTO) 4.07 MIL/uL (4.00-5.50); RED CELL DISTRIBUTION WIDTH 13.3 % (11.0-15.5); WHITE BLOOD COUNT (AUTO) 6.7 K/uL (4.8-10.8)
[2024-03-20 06:53] LABS: ALBUMIN 2.7 g/dL (3.5-5.0); BILIRUBIN,TOTAL 0.5 mg/dL (0.2-1.0); CREATININE 0.5 mg/dL (0.5-1.0); POTASSIUM 3.8 mmol/L (3.5-5.1); TOTAL PROTEIN, SERUM 6.8 g/dL (6.0-8.3)
[2024-03-20 07:12] LABS: EOSINOPHILS % (MANUAL) 1 % (1-6); LYMPHOCYTES % (MANUAL) 41 % (22-44); MONOCYTES % (MANUAL) 10 % (2-9); REACTIVE LYMPHOCYTES 1 % (0-0); SEGMENTED NEUTROPHILS % 47 % (40-70); TOTAL CELLS COUNTED 100
[2024-03-20 07:13] LABS: MAN.DIFF COMMENT-IMPRESSION MANUAL DIFFERENTIAL; PLATELET MORPHOLOGY COMMENT ADEQUATE
[2024-03-20 08:00] VITALS: BP 132/78; PULSE 77; RESP 17; TEMP 98.2; O2SAT 96
--- NOTE | 2024-03-20 08:24 | PN ---
Ms. Perez is a 38-year-old female with a history of anemia who presented [facility] emergency department for evaluation of fever, nausea, chills, headache, left flank pain onset Wednesday. Patient denies any abdominal pain, vomiting, sore throat, cough, ear pain. Flu and COVID swabs were negative. Chest x-ray: 1. No acute pulmonary infiltrate is seen. Ultrasound soft tissue neck: 1. Left cervical adenopathy with the largest lymph node measuring 4.2 x 1.6 cm. EKG: Sinus tachycardia. UA positive for leuk EST, ketones, protein, urobilinogen. This patient did not have any fever in the last 24 hours. Her white blood count actually is corrected. Patient with mild anemia hemoglobin level 10.6 g/deciliter. Platelet count is normal at 209K. White blood cell is 6.7K with normal differentiation PHYSICAL EXAM GENERAL APPEARANCE: The patient is awake, alert, and oriented, in no acute cardiopulmonary distress. NEUROLOGICAL: Cranial nerves II-XII grossly intact. Motor is 5/5 in bilateral upper and lower extremities proximal to distal. No sensory deficits. HEENT: Face is symmetric. Pupils are equal and reactive. Extraocular movements are intact. NECK: Supple. No JVD. No thyromegaly. No submental, submandibular, pre- /postauricular, occipital or supraclavicular lymphadenopathy. CHEST: Normal chest expansion. No Telemetry. LUNGS: Absence of any rales, rhonchi or any wheezing. CARDIOVASCULAR: Regular. S1 and S2 normal. No appreciable rubs, murmurs or gallops. ABDOMEN: Soft, nontender, and nondistended. There is no rebound, voluntary guarding, or rigidity. : Deferred. No Maurice. EXTREMITIES: Non-edematous and not cyanotic. No clubbing. Good capillary refill. SKIN: No skin breakdown. Assessment 1. Neutropenia. White blood count corrected at 6.1K. With the absolute neutrophil count is 71% 2. Fever chills. There was no fever in the last 24 hours 3. Left cervical adenopathy 4. Pyelonephritis 5. History of anemia but hemoglobin level is 12.3 g/deciliter Plan 1. This patient did not have any fever in the last 24 hours. Patient is stable from my point of view and she could be discharged home. 2. There was hypersegmented neutrophils. This patient to Continue on folic acid 1 mg p.o. daily and vitamin B12 1000 mcg p.o. daily. 3. There is increased number of neutrophils, bands and toxic granulation and vacuolation. This is consistent with infection most likely atypical infection. I discussed the case with infectious diseases specialist. Maybe we need to add doxycycline or tetracycline to cover atypical infection. 4. We will follow-up with this patient closely. 5. No need for bone marrow biopsy or biopsy of the lymph node at this time. If the symptoms did not resolve with antibiotic treatment then maybe biopsy of the lymph node is indicated I will sign off this case Vitals/Labs Vital Signs Date Time Temp Pulse Resp B/P (MAP) Pulse Ox O2 Delivery O2 Flow Rate FiO2 03/20/24 04:01 98.4 75 18 137/68 94 Room Air 03/19/24 20:10 0 21 Laboratory Tests 03/20/24 06:28 Medications Current Medications Sodium Chloride 1,000 ml @ 0 mls/hr ONCE ONCE IV Last administered on 03/14/24at 19:53; Start 03/14/24 at 18:00; Stop 03/14/24 at 18:01; Status DC Ondansetron HCl 4 mg ONCE ONCE IVP Last administered on 03/14/24at 19:53; Start 03/14/24 at 18:00; Stop 03/14/24 at 18:01; Status DC Acetaminophen 1,000 mg ONCE ONCE PO Last administered on 03/14/24at 19:03; Start 03/14/24 at 18:00; Stop 03/14/24 at 18:01; Status DC Ceftriaxone Sodium 2 gm ONCE ONCE IVPB Last administered on 03/14/24at 19:53; Start 03/14/24 at 18:00; Stop 03/14/24 at 18:01; Status DC Potassium Bicarbonate 50 meq ONCE ONCE PO Last administered on 03/14/24at 21:30; Start 03/14/24 at 20:30; Stop 03/14/24 at 20:34; Status DC Ceftriaxone Sodium 2 gm Q24H IVPB; Start 03/15/24 at 20:00; Stop 03/15/24 at 02:58; Status DC Sodium Chloride 1,000 ml @ 125 mls/hr Q8H IV Last administered on 03/19/24at 14:20; Start 03/14/24 at 22:30; Stop 04/13/24 at 22:29 Enoxaparin Sodium 30 mg DAILY SQ Last administered on 03/19/24at 08:06; Start 03/15/24 at 09:00; Stop 04/14/24 at 08:59 Acetaminophen 650 mg Q6H PRN PO Last administered on 03/19/24at 22:15; Start 03/15/24 at 03:00; Stop 04/14/24 at 02:59 Acetaminophen 650 mg Q6H PRN RC; Start 03/15/24 at 03:00; Stop 04/14/24 at 02:59 Lactulose 20 gm Q6H PRN PO Last administered on 03/18/24at 10:32; Start 03/15/24 at 03:00; Stop 04/14/24 at 02:59 Docusate Sodium 100 mg BID PRN PO Last administered on 03/18/24at 10:32; Start 03/15/24 at 03:00; Stop 04/14/24 at 02:59 Temazepam 15 mg HS PRN PO; Start 03/15/24 at 03:00; Stop 04/14/24 at 02:59 Ondansetron HCl 4 mg Q6H PRN IVP Last administered on 03/18/24at 06:12; Start 03/15/24 at 03:00; Stop 04/14/24 at 02:59 Hydralazine HCl 10 mg Q2H PRN IV; Start 03/15/24 at 03:00; Stop 04/14/24 at 02:59 Ceftriaxone Sodium 2 gm Q24H IVPB Last administered on 03/20/24at 05:20; Start 03/15/24 at 06:00; Stop 03/25/24 at 05:59 Dextrose 50 ml AD PRN IV; Start 03/15/24 at 03:00; Stop 04/14/24 at 02:59 Glucagon 1 mg AD PRN IM; Start 03/15/24 at 03:00; Stop 04/14/24 at 02:59 Magnesium Sulfate 50 ml @ 0 mls/hr PROTOCOL PRN IV Last administered on 03/19/24at 11:56; Start 03/15/24 at 03:00; Stop 04/14/24 at 02:59 Potassium Chloride 100 ml @ 100 mls/hr AD PRN IV; Start 03/15/24 at 03:00; Stop 04/14/24 at 02:59 Potassium Chloride 20 meq AD PRN PO; Start 03/15/24 at 03:00; Stop 04/14/24 at 02:59 Potassium Chloride 20 meq AD PRN PO Last administered on 03/19/24at 11:55; Start 03/15/24 at 03:00; Stop 04/14/24 at 02:59 Pantoprazole Sodium 40 mg DAILY PO Last administered on 03/19/24at 08:05; Start 03/15/24 at 09:00; Stop 04/14/24 at 08:59 Ketorolac Tromethamine 15 mg Q6H PRN IV Last administered on 03/19/24at 15:44; Start 03/15/24 at 10:30; Stop 03/20/24 at 10:29 Doxycycline Hyclate 100 mg BID PO Last administered on 03/19/24at 20:09; Start 03/15/24 at 21:00; Stop 03/25/24 at 20:59 Ibuprofen 600 mg Q4H PRN PO Last administered on 03/17/24at 14:41; Start 03/15/24 at 16:00; Stop 04/14/24 at 15:59 Guaifenesin/ Dextromethorphan 10 ml Q4H PRN PO Last administered on 03/18/24at 13:24; Start 03/16/24 at 18:30; Stop 03/18/24 at 18:25; Status DC Benzonatate 200 mg Q8H PRN PO Last administered on 03/18/24at 16:46; Start 03/17/24 at 13:30; Stop 04/16/24 at 13:29 Potassium Chloride 100 ml @ 100 mls/hr AD PRN IV; Start 03/18/24 at 12:00; Stop 03/18/24 at 11:37; Status DC Potassium Chloride 20 meq AD PRN PO; Start 03/18/24 at 12:00; Stop 03/18/24 at 11:37; Status DC Potassium Chloride 20 meq AD PRN PO; Start 03/18/24 at 12:00; Stop 03/18/24 at 11:37; Status DC Magnesium Sulfate 50 ml @ 0 mls/hr PROTOCOL PRN IV; Start 11/30/24 at 12:00; Stop 03/18/24 at 11:38; Status DC Guaifenesin/ Codeine Phosphate 5 ml Q4H PRN PO Last administered on 03/19/24at 15:44; Start 03/18/24 at 18:30; Stop 04/17/24 at 18:29 CELSA CLAY MD Mar 20, 2024 08:24
[2024-03-20 12:00] VITALS: BP 127/87; PULSE 86; RESP 18; TEMP 98.4
--- NOTE | 2024-03-20 14:03 | DS ---
Discharge Summary Hospital Course Summary: Ms. Perez is a 38-year-old female with a history of anemia who presented [facility] [place] emergency department for evaluation of fever, nausea, chills, headache, left flank pain onset Wednesday. Patient denies any abdominal pain, vomiting, sore throat, cough, ear pain. Flu and COVID swabs were negative. Chest x-ray: 1. No acute pulmonary infiltrate is seen. Ultrasound soft tissue neck: 1. Left cervical adenopathy with the largest lymph node measuring 4.2 x 1.6 cm. EKG: Sinus tachycardia. UA positive for leuk EST, ketones, protein, urobilinogen. ED provider request patient be admitted under the [facility] team with the diagnosis of pyelonephritis, sepsis, hypokalemia, hyponatremia, dehydration, fever, lymphadenopathy. Went to assess the patient at bedside. Patient appeared comfortable, in no distress. Patient reports she had no longer has a fever but has a headache. Family member was at bedside. I informed them of labs, diagnostics, and plan of care. They verbalized understanding and are in agreement with plan. While inpatient, Patient was four monitored closely, LFTs were elevated. She also continued with headache. Microbiology reviewed, blood culture were negative, urine culture was remarkable with [id number] CFU with mixed myrna contamination. She continued with Rocephin. Due to anemia, Hematology was also consulted for which he noted neutropenia, left cervical adenopathy and he indicated that patient is having atypical infection for which doxycycline was started. From what it showed, she continued with fevers. Patient was noted with suspected rickettsial infection. We discussed how patient must have gotten this as patient has many animals at home. We discussed how they can prevent this by killing the fleas and cleaning the house. Patient we will follow up with his PCP. Patient was discharged from infectious disease standpoint and was sent home with doxycycline 100 mg p.o. b.i.d.. Patient is stable to be d ischarged home today. Plate Stacker(s): Dr. Macias-Oncology Dr. Martin- ID Procedure(s): [place] [address] [place] [id number] IMAGING REPORT Signed PATIENT: PEREZ PEREZ MR#: [id number] : 1985 SEX: F AGE: 38 LOCATION: [facility] ORDER 56 STATUS: REG ER REPORT#: [id number] SERVICE 55 REASON: left swelling ORDERING PHYSICIAN: [facility] PROCEDURE: SOFT NECK - US SOFT TISSUE NECK US SOFT TISSUE NECK REASON: left swelling. COMPARISON: None TECHNIQUE: Left neck ultrasound study was performed. FINDINGS: Over the palpable area, there are multiple left cervical lymph nodes with the largest measuring 4.2 x 1.6 cm. IMPRESSION: 1. Left cervical adenopathy with the largest lymph node measuring 4.2 x 1.6 cm. Follow-up examination is recommended. DICTATED BY: NAJMA MORRIS MD DATE: 03/14/242023 ELECTRONICALLY SIGNED BY: NAJMA MORRIS MD DATE: 03/14/242027 [place] [id number] IMAGING REPORT Signed PATIENT: PEREZ PEREZ MR#: [id number] : 1985 SEX: F AGE: 38 LOCATION: [facility] ORDER 101 STATUS: ADM IN REPORT#: [id number] SERVICE 1010 REASON: COUGH ORDERING PHYSICIAN: [facility] CO[facility] PROCEDURE: CHEST WO - CT CHEST W/O CONTRAST CT CHEST W/O CONTRAST REASON: COUGH COMPARISON: None. TECHNIQUE: Multiple sequential axial images of the chest were obtained from the thoracic inlet through the upper pole of the kidneys without intravenous contrast administration. FINDINGS: Heart size is within upper limits of normal. No mediastinal or axillary lymphadenopathy identified. There is no pleural or pericardial effusion. Lungs are clear. There is no consolidation or pneumothorax. Trachea and main bronchi are unremarkable. No chest wall abnormality identified. IMPRESSION: Negative unenhanced CT chest. CT was performed with one or more following dose reduction techniques: automated exposure control, adjustment of the mA and kv according to patient's size, or use of a iterative reconstruction technique. DICTATED BY: CHARLES HAQ MD DATE: 03/15/24 1308 ELECTRONICALLY SIGNED BY: CHARLES HAQ MD DATE: 03/15/24 1311 [facility] [address] [place], [place] [id number] IMAGING REPORT Signed PATIENT: PEREZ PEREZ MR#: [id number] : 1985 SEX: F AGE: 38 LOCATION: [facility] ORDER 39 STATUS: REG ER REPORT#: [id number] SERVICE REASON: sob ORDERING PHYSICIAN: [facility] CO[facility] PROCEDURE: CXR1VW - CHEST 1VW CHEST 1VW HISTORY: Shortness of breath COMPARISON: None FINDINGS: A frontal projection of the chest was obtained. No acute pulmonary infiltrates is seen. The heart is normal in size. Prominent interstitial markings are seen. Aortic calcifications are seen. Mild degenerative changes are seen. IMPRESSION: 1. No acute pulmonary infiltrate is seen. DICTATED BY: NAJMA MORRIS MD DATE: 03/14/241809 ELECTRONICALLY SIGNED BY: NAJMA MORRIS MD DATE: 03/14/241813 Assessment/Plan: Discharge diagnoses Suspected rickettsial infection, POA Pyelonephritis, POA Acute complicated cystitis, POA Left cervical adenopathy with the largest lymph node measuring 4.2 x 1.6 cm, POA Electrolyte derangement (hyponatremia, hypokalemia, hypochloremia Dehydration Persistent headache anemia Admitting diagnoses Pyelonephritis, POA Acute complicated cystitis, POA Left cervical adenopathy with the largest lymph node measuring 4.2 x 1.6 cm, POA Electrolyte derangement (hyponatremia, hypokalemia, hypochloremia Dehydration Chronic problem list: anemia Home Medications: No Active Prescriptions or Reported Meds Time spent arranging discharge: 31-60 minutes ATTESTATION BY PHYSICIAN I have seen and examined the patient. I reviewed the documentation, medical decision making, and treatment plan as noted by the mid-level provider above. I agree with the findings and plan of care. Sayra Prado MD, JANICE B AGPCNP Mar 20, 2024 14:02
--- NOTE | 2024-03-20 17:00 | NUR ---
DC NOTE DC INSTRUCTION, FOLLOW UP APPOINTMENT AND PRINTED PRESCRIPTIONS GIVEN TO PT, VERBALIZED UNDERSTANDING. PIV REMOVED. CATHETER INTACT DENIES ANY PAIN OR DISCOMFORT. PT IS WHEELED DOWNSTAIRS WITH FIELD HOCKEY COACH INTO VIA PRIVATE CAR. NO FURTHER COMMENTS OR CONCERNS AT THIS TIME.
[2024-03-20 21:08] LABS: SPOTTED FEVER GROUP IGG <1:64 (Neg:<1:64); SPOTTED FEVER GROUP IGM <1:64 (Neg:<1:64)
== END 2024-03-20 17:00 | disposition home or self-care (01) | DRG 872 ==
LOC: EDH 17:05 → EDHIP 17:06 → 3BH 21:42
PROVIDERS: ADMIT Hospitalist; ATTEND Hospitalist
DX: A41.9 Sepsis, unspecified organism (principal); N12 Tubulo-interstitial nephritis, not specified as acute or chronic; N30.00 Acute cystitis without hematuria; E87.1 Hypo-osmolality and hyponatremia; A79.9 Rickettsiosis, unspecified; Z20.822 Contact with and (suspected) exposure to COVID-19; E86.0 Dehydration; E87.6 Hypokalemia; D63.8 Anemia in other chronic diseases classified elsewhere; E87.8 Other disorders of electrolyte and fluid balance, not elsewhere classified; R59.0 Localized enlarged lymph nodes; D70.9 Neutropenia, unspecified; E66.9 Obesity, unspecified; Z79.899 Other long term (current) drug therapy; Z68.29 Body mass index [BMI] 29.0-29.9, adult
CPT/HCPCS: 36415; 71045; 71250; 76536; 80048; 80053; 80076; 81001; 83036; 83605; 83735; 84100; 84443; 84484; 85025; 85027; 86757; 87040; 87086; 87426; 87804; 93005; 96365; 96366; 96375; 99285; G0378; J0696; J1650; J1885; J2405; J3475; J7030